=== PATIENT | female | born 1950 | race African-American/Black ===

== ENCOUNTER 2020-07-27 12:00 | Observation (INO) | payer OTHER ==
[2020-07-27 12:18] VITALS: BMI 30.9
[2020-07-27] MEDS ORDERED: LACTATED RINGERS SOLUTION 1000 ML INFUS.BAG IV ONE (13:05)
[2020-07-27 13:25] LABS: BASO % 0.7 % (0-2.0); HEMATOCRIT 41.3 % (32.4-45.2); HEMOGLOBIN 13.5 GM/dL (10.7-15.3); LYMPH % 12.8 % (8-40); MCH 28.5 pg (25.7-33.7); MCHC 32.6 g/dl (32.0-36.0); MEAN CELL VOLUME 87.4 fl (80-96); MEAN PLT VOLUME 9.3 fl (7.5-11.1); MONO % 4.2 % (3.8-10.2); NEUT % 82.3 % (42.8-82.8); PLATELET COUNT 344 K/MM3 (134-434); RBC 4.73 M/mm3 (3.60-5.2); RDW 14.8 % (11.6-15.6)
[2020-07-27 13:32] LABS: INR 1.05 (0.83-1.09); PROTHROMBIN TIME (PATIENT) 12.9 SEC (9.7-13.0)
[2020-07-27 13:34] LABS: ACTIVATED PTT 31.5 SECONDS (25.2-36.5)
[2020-07-27 13:45] LABS: ALBUMIN 4.2 g/dl (3.4-5.0); BLOOD UREA NITROGEN 16.4 mg/dL (7-18); CALCIUM 9.9 mg/dL (8.5-10.1)
[2020-07-27 13:48] LABS: CREATININE 1.3 mg/dL (0.55-1.3)
[2020-07-27 13:50] LABS: BILIRUBIN,TOTAL 0.3 mg/dL (0.2-1); TOT PROT 8.3 g/dl (6.4-8.2)
[2020-07-27] MEDS ORDERED: METOPROLOL TARTRATE 5 MG/5 ML VIAL IVPUSH ONE (14:05)
[2020-07-27] MEDS ORDERED: METOPROLOL TARTRATE 25 MG TABLET (FP) PO ONE (14:17)
[2020-07-27] MEDS ORDERED: METOPROLOL TARTRATE 25 MG TABLET (FP) ONE (14:44)
[2020-07-27] MEDS ORDERED: FAMOTIDINE 20 MG/50 ML IVPB 20 MG/50 ML MG IVPB ONE ×2 (17:22→17:46)
[2020-07-27] MEDS ORDERED: MAG HYDROX/AL HYDROX/SIMETH 30 ML UNIT-DOSE CUP PO ONE (20:45)
[2020-07-27] MEDS ORDERED: MAG HYDROX/AL HYDROX/SIMETH 30 ML UNIT-DOSE CUP ONE (20:47)
[2020-07-28] MEDS: INSULIN SLIDING SCALE (NOVOLOG) 1 VIAL SQ SCH ×5 (00:03→21:19)
[2020-07-28] MEDS ORDERED: ATORVASTATIN CA 20 MG TABLET (FP) ONE (00:05)
[2020-07-28] MEDS ORDERED: METOPROLOL TARTRATE 25 MG TABLET (FP) ONE ×2 (00:06→09:28)
[2020-07-28] MEDS ORDERED: APIXABAN 5 MG TABLET ONE (00:06)
[2020-07-28] MEDS: APIXABAN 5 MG TABLET PO SCH ×3 (00:11→21:18)
[2020-07-28] MEDS: ATORVASTATIN CA 10 MG TABLET (FP) PO SCH ×2 (00:11→21:18)
[2020-07-28] MEDS: METOPROLOL TARTRATE 25 MG TABLET (FP) PO SCH ×4 (00:11→21:19)
[2020-07-28 06:24] LABS: BASO % 1.1 % (0-2.0); EOS % 0.2 % (0-4.5); HEMATOCRIT 40.5 % (32.4-45.2); HEMOGLOBIN 13.2 GM/dL (10.7-15.3); LYMPH % 28.1 % (8-40); MCH 28.5 pg (25.7-33.7); MCHC 32.7 g/dl (32.0-36.0); MEAN CELL VOLUME 87.2 fl (80-96); MONO % 7.9 % (3.8-10.2); NEUT % 62.7 % (42.8-82.8); PLATELET COUNT 336 K/MM3 (134-434); RBC 4.64 M/mm3 (3.60-5.2); RDW 15.4 % (11.6-15.6); WHITE BLOOD COUNT 8.3 K/mm3 (4.0-10.0)
[2020-07-28 06:49] LABS: CHOLESTEROL 229 mg/dL (50-200); TRIGLYCERIDES 195 mg/dL (0-150)
[2020-07-28 06:50] LABS: HDL CHOLESTEROL 50 mg/dL (40-60); LDL CHOLESTEROL (ONLY SJRH) 135 mg/dL (5-100)
[2020-07-28 07:22] LABS: CALCIUM 9.6 mg/dL (8.5-10.1)
[2020-07-28 07:23] LABS: ALBUMIN 3.9 g/dl (3.4-5.0); BLOOD UREA NITROGEN 16.4 mg/dL (7-18); MAGNESIUM 2.1 mg/dL (1.8-2.4)
[2020-07-28 07:27] LABS: BILIRUBIN,TOTAL 0.4 mg/dL (0.2-1)
[2020-07-28 07:28] LABS: TOT PROT 7.7 g/dl (6.4-8.2)
[2020-07-28 07:39] LABS: CREATININE 1.1 mg/dL (0.55-1.3)
[2020-07-28] MEDS ORDERED: ASPIRIN 81 MG CHEWABLE TABLETS ONE (09:28)
[2020-07-28] MEDS ORDERED: APIXABAN 2.5 MG TABLET ONE (09:28)
[2020-07-28] MEDS ORDERED: CITALOPRAM HYDROBROMIDE 10 MG TABLET ONE (09:29)
[2020-07-28] MEDS: CITALOPRAM HYDROBROMIDE 10 MG TABLET PO SCH (09:30)
[2020-07-28] MEDS ORDERED: ASPIRIN 81 MG CHEWABLE TABLETS PO SCH (10:00)
[2020-07-28] MEDS: amLODIPine BESYLATE 10 MG TABLET (FP) PO SCH (14:59)
[2020-07-28] MEDS ORDERED: MAG HYDROX/AL HYDROX/SIMETH 30 ML UNIT-DOSE CUP PO PRN (15:26)
[2020-07-28] MEDS ORDERED: INSULIN (NOVOLOG) ASPART 100 UNITS/ML 10ML VIAL ONE (17:21)
[2020-07-28] MEDS ORDERED: PT OWN MED DRAWER 7, Y5N ONE (20:53)
[2020-07-28] MEDS: GABAPENTIN 300 MG CAPSULE PO SCH (21:19)
[2020-07-28] MEDS ORDERED: LATANOPROST 0.005% OPHTH SOLN 2.5ML BOTTLE OU SCH (22:00)
[2020-07-28] MEDS: TIZANIDINE HCL 4 MG TABLET PO SCH (22:52)
[2020-07-29 05:41] VITALS: BP 133/70; PULSE 75; TEMP 98.5
[2020-07-29] MEDS: METOPROLOL TARTRATE 25 MG TABLET (FP) PO SCH (06:24)
[2020-07-29] MEDS: INSULIN SLIDING SCALE (NOVOLOG) 1 VIAL SQ SCH ×3 (06:24→16:39)
[2020-07-29 07:08] LABS: HEMATOCRIT 37.4 % (32.4-45.2); HEMOGLOBIN 12.3 GM/dL (10.7-15.3); MCH 28.7 pg (25.7-33.7); MCHC 32.7 g/dl (32.0-36.0); MEAN CELL VOLUME 87.8 fl (80-96); MEAN PLT VOLUME 9.5 fl (7.5-11.1); PLATELET COUNT 284 K/MM3 (134-434); RBC 4.26 M/mm3 (3.60-5.2); RDW 14.6 % (11.6-15.6); WHITE BLOOD COUNT 5.7 K/mm3 (4.0-10.0)
[2020-07-29 07:33] LABS: CALCIUM 9.5 mg/dL (8.5-10.1)
[2020-07-29 07:34] LABS: BLOOD UREA NITROGEN 24.2 mg/dL (7-18)
[2020-07-29 07:37] LABS: CREATININE 1.4 mg/dL (0.55-1.3)
[2020-07-29] MEDS: amLODIPine BESYLATE 10 MG TABLET (FP) PO SCH (09:13)
[2020-07-29] MEDS: GABAPENTIN 300 MG CAPSULE PO SCH (09:13)
[2020-07-29] MEDS: APIXABAN 5 MG TABLET PO SCH (09:14)
[2020-07-29] MEDS: TIZANIDINE HCL 4 MG TABLET PO SCH (09:21)
[2020-07-29] MEDS ORDERED: LISINOPRIL 10 MG TABLET PO SCH (10:00)
[2020-07-29] MEDS ORDERED: FUROSEMIDE 40 MG TABLET (FP) PO SCH (10:00)
[2020-07-29] MEDS ORDERED: PT OWN MED DRAWER 7, Y5N ONE (10:55)
[2020-07-29] MEDS: CITALOPRAM HYDROBROMIDE 10 MG TABLET PO SCH (10:56)
== END 2020-07-29 19:01 | disposition home or self-care (01) ==
LOC: JER 12:00 → UNDOADMOB 16:59 → INTOOBSV 16:59 → JERBED 16:59 → J4W 07-28 15:34 → JERBED 07-29 10:09
PROVIDERS: ATTEND Internal Medicine
PROC: 3E013VG Introduction of Insulin into Subcutaneous Tissue, Percutaneous Approach (ICD-10-PCS; principal; 2020-07-29)
DX: I48.20 Chronic atrial fibrillation, unspecified (principal); E11.9 Type 2 diabetes mellitus without complications; Z79.4 Long term (current) use of insulin; K21.9 Gastro-esophageal reflux disease without esophagitis; G47.33 Obstructive sleep apnea (adult) (pediatric); I25.10 Atherosclerotic heart disease of native coronary artery without angina pectoris; I13.10 Hypertensive heart and chronic kidney disease without heart failure, with stage 1 through stage 4 chronic kidney disease, or unspecified chronic kidney disease; N18.30 Chronic kidney disease, stage 3 unspecified; I25.2 Old myocardial infarction; Z95.5 Presence of coronary angioplasty implant and graft; M54.5 Low back pain; G89.29 Other chronic pain; E66.9 Obesity, unspecified; Z68.30 Body mass index [BMI] 30.0-30.9, adult; Z89.511 Acquired absence of right leg below knee
CPT/HCPCS: 36415; 71046-TC-FY; 74177-TC; 80048; 80053; 80061; 82962; 83036; 83690; 83721; 83735; 84439; 84443; 84484; 85025; 85027; 85610; 85730; 93005; 93010; 93306-TC; 96372; 99285-25; C9803; G0378; Q9967; U0003; U0005

== ENCOUNTER 2021-01-11 09:35 | Inpatient (IN) | payer OTHER ==
[2021-01-11] MEDS ORDERED: VANCOMYCIN 1 GM in D5W (PRE-DOCKED) 1,000 MG/250 ML IVPB ONE (10:40)
[2021-01-11] MEDS ORDERED: PIPERACILLIN/TAZOB 3.375 GM 3.375 GM in DEXTROSE 5%-WATER - 50 ML IVPB ONE (10:40)
[2021-01-11] MEDS ORDERED: VANCOMYCIN 1 GRAM (PRE-DOCKED) 1,000 MG/250 ML BAG IVPB ONE (11:09)
[2021-01-11] MEDS ORDERED: PIPERACILLIN/TAZOB 3.375 GM 3.375 GM/50 ML BAG IVPB ONE ×2 (11:10→19:32)
[2021-01-11 11:15] LABS: EOS % 0.7 % (0-4.5); HEMATOCRIT 33.4 % (32.4-45.2); HEMOGLOBIN 10.6 GM/dL (10.7-15.3); LYMPH % 17.6 % (8-40); MCH 25.1 pg (25.7-33.7); MCHC 31.8 g/dl (32.0-36.0); MEAN CELL VOLUME 78.8 fl (80-96); MEAN PLT VOLUME 8.7 fl (7.5-11.1); MONO % 7.6 % (3.8-10.2); NEUT % 72.1 % (42.8-82.8); PLATELET COUNT 269 10^3/uL (134-434); RBC 4.24 M/mm3 (3.60-5.2); RDW 26.7 % (11.6-15.6); WHITE BLOOD COUNT 6.1 K/mm3 (4.0-10.0)
[2021-01-11 11:43] LABS: ALBUMIN 3.7 g/dl (3.4-5.0); BLOOD UREA NITROGEN 13.6 mg/dL (7-18); CALCIUM 9.3 mg/dL (8.5-10.1)
[2021-01-11 11:47] LABS: CREATININE 1.2 mg/dL (0.55-1.3)
[2021-01-11 11:48] LABS: BILIRUBIN,TOTAL 0.3 mg/dL (0.2-1); TOT PROT 7.6 g/dl (6.4-8.2)
[2021-01-11 12:20] LABS: ANISOCYTOSIS 3+; MACROCYTOSIS 2+
[2021-01-11] MEDS ORDERED: ACETAMINOPHEN 325 MG TABLET (FP) PO PRN (14:16)
[2021-01-11] MEDS ORDERED: PIPERACILLIN/TAZOB 3.375 GM 3.375 GM in DEXTROSE 5%-WATER - 50 ML IVPB SCH (14:30)
[2021-01-11] MEDS: INSULIN SLIDING SCALE (NOVOLOG) 1 VIAL SQ SCH ×2 (19:40→22:13)
[2021-01-11] MEDS: PIPERACILLIN/TAZOB 3.375 GM 3.375 GM in DEXTROSE 5%-WATER - 50 ML IVPB SCH ×3 (20:38→21:43)
[2021-01-11] MEDS: INSULIN (LEVEMIR) 100 UNITS/ML UNITS SQ SCH (22:12)
[2021-01-11] MEDS: APIXABAN 5 MG TABLET PO SCH (22:13)
[2021-01-11] MEDS: GABAPENTIN 300 MG CAPSULE PO SCH (22:14)
[2021-01-11] MEDS: ATORVASTATIN CA 10 MG TABLET (FP) PO SCH (22:14)
[2021-01-11] MEDS: VANCOMYCIN 1 GRAM (PRE-DOCKED) 1,000 MG/250 ML BAG IVPB SCH (22:28)
[2021-01-12 00:47] LABS: N-TERMINAL BNP 863.4 pg/ml (5-125)
[2021-01-12] MEDS ORDERED: DEXTROSE 5%-WATER - 50 ML IVPB ONE ×3 (01:09→17:34)
[2021-01-12] MEDS ORDERED: PIPERACILLIN/TAZOBACTAM 3.375 GM VIAL IVPB ONE ×3 (01:09→17:33)
[2021-01-12] MEDS: PIPERACILLIN/TAZOB 3.375 GM 3.375 GM in DEXTROSE 5%-WATER - 50 ML IVPB SCH ×3 (01:24→17:37)
[2021-01-12] MEDS: INSULIN SLIDING SCALE (NOVOLOG) 1 VIAL SQ SCH ×4 (06:13→21:29)
[2021-01-12] MEDS: INSULIN (LEVEMIR) 100 UNITS/ML UNITS SQ SCH ×2 (06:15→21:28)
[2021-01-12 08:51] LABS: BASO % 1.8 % (0-2.0); EOS % 3.6 % (0-4.5); HEMATOCRIT 35.2 % (32.4-45.2); HEMOGLOBIN 11.3 GM/dL (10.7-15.3); LYMPH % 19.5 % (8-40); MCH 25.1 pg (25.7-33.7); MCHC 32.2 g/dl (32.0-36.0); MEAN CELL VOLUME 77.9 fl (80-96); MEAN PLT VOLUME 8.7 fl (7.5-11.1); MONO % 7.5 % (3.8-10.2); NEUT % 67.6 % (42.8-82.8); PLATELET COUNT 271 10^3/uL (134-434); RBC 4.52 M/mm3 (3.60-5.2); WHITE BLOOD COUNT 5.4 K/mm3 (4.0-10.0)
[2021-01-12 09:30] LABS: ALBUMIN 3.8 g/dl (3.4-5.0); CALCIUM 9.4 mg/dL (8.5-10.1)
[2021-01-12 09:33] LABS: CREATININE 1.1 mg/dL (0.55-1.3); PHOSPHOROUS 3.4 mg/dL (2.5-4.9)
[2021-01-12 09:35] LABS: BILIRUBIN,TOTAL 0.4 mg/dL (0.2-1); TOT PROT 7.8 g/dl (6.4-8.2)
[2021-01-12] MEDS: GABAPENTIN 300 MG CAPSULE PO SCH ×2 (09:53→21:24)
[2021-01-12] MEDS: FUROSEMIDE 40 MG TABLET (FP) PO SCH (09:53)
[2021-01-12] MEDS: APIXABAN 5 MG TABLET PO SCH ×3 (09:53→22:50)
[2021-01-12] MEDS: amLODIPine BESYLATE 10 MG TABLET (FP) PO SCH (09:53)
[2021-01-12] MEDS ORDERED: VANCOMYCIN 1 GM in D5W (PRE-DOCKED) 1,000 MG/250 ML IVPB SCH (11:00)
[2021-01-12] MEDS: VANCOMYCIN 1 GRAM (PRE-DOCKED) 1,000 MG/250 ML BAG IVPB SCH ×2 (11:07→23:15)
[2021-01-12] MEDS: NYSTATIN POWDER 100,000 UNITS/GM - 15 GM TOPICAL POWDER TP SCH (17:03)
[2021-01-12] MEDS: ATORVASTATIN CA 10 MG TABLET (FP) PO SCH (21:25)
[2021-01-13] MEDS ORDERED: PIPERACILLIN/TAZOBACTAM 3.375 GM VIAL IVPB ONE ×3 (02:57→18:06)
[2021-01-13] MEDS ORDERED: DEXTROSE 5%-WATER - 50 ML IVPB ONE ×3 (02:57→18:06)
[2021-01-13] MEDS: PIPERACILLIN/TAZOB 3.375 GM 3.375 GM in DEXTROSE 5%-WATER - 50 ML IVPB SCH ×3 (03:14→18:19)
[2021-01-13] MEDS: INSULIN SLIDING SCALE (NOVOLOG) 1 VIAL SQ SCH ×4 (06:24→22:15)
[2021-01-13] MEDS: INSULIN (LEVEMIR) 100 UNITS/ML UNITS SQ SCH ×2 (06:28→22:10)
[2021-01-13 08:54] LABS: HEMOGLOBIN 10.9 GM/dL (10.7-15.3); MCHC 32.1 g/dl (32.0-36.0); MEAN CELL VOLUME 77.9 fl (80-96); MEAN PLT VOLUME 8.8 fl (7.5-11.1); PLATELET COUNT 249 10^3/uL (134-434); RBC 4.37 M/mm3 (3.60-5.2); RDW 26.4 % (11.6-15.6); WHITE BLOOD COUNT 5.1 K/mm3 (4.0-10.0)
[2021-01-13 09:48] LABS: BLOOD UREA NITROGEN 13.7 mg/dL (7-18); MAGNESIUM 2.1 mg/dL (1.8-2.4)
[2021-01-13 09:51] LABS: CREATININE 1.2 mg/dL (0.55-1.3); PHOSPHOROUS 3.7 mg/dL (2.5-4.9)
[2021-01-13] MEDS: GABAPENTIN 300 MG CAPSULE PO SCH ×2 (10:54→22:07)
[2021-01-13] MEDS: amLODIPine BESYLATE 10 MG TABLET (FP) PO SCH (10:54)
[2021-01-13] MEDS: FUROSEMIDE 40 MG TABLET (FP) PO SCH (10:54)
[2021-01-13] MEDS: NYSTATIN POWDER 100,000 UNITS/GM - 15 GM TOPICAL POWDER TP SCH (10:54)
[2021-01-13] MEDS: VANCOMYCIN 1 GRAM (PRE-DOCKED) 1,000 MG/250 ML BAG IVPB SCH ×2 (11:48→22:50)
[2021-01-13] MEDS ORDERED: ONDANSETRON 4 MG/2 ML VIAL IVPUSH PRN ×2 (15:22→17:18)
[2021-01-13] MEDS ORDERED: PROMETHAZINE HCL 25 MG/1 ML VIAL IVPUSH PRN (15:22)
[2021-01-13] MEDS ORDERED: LACTATED RINGERS SOLUTION 1,000 ML IV SCH ×2 (15:30→17:18)
[2021-01-13] MEDS ORDERED: LIDOCAINE HCL 1%, 10 MG/ML (20ML VIAL) ONE (15:46)
[2021-01-13] MEDS ORDERED: MIDAZOLAM HCL 2 MG/2 ML SINGLE DOSE VIAL ONE (15:55)
[2021-01-13] MEDS ORDERED: PROPOFOL 20 ML ONE (15:55)
[2021-01-13] MEDS ORDERED: HEPARIN NA (PORCINE) 5,000 UNITS/ML 1ML VIAL SQ ONE (16:10)
[2021-01-13] MEDS ORDERED: HEPARIN NA (PORCINE) 5,000 UNITS/ML 1ML VIAL ONE (16:26)
[2021-01-13] MEDS ORDERED: INSULIN (NOVOLOG) ASPART 100 UNITS/ML 10ML VIAL ONE (17:33)
[2021-01-13] MEDS: APIXABAN 5 MG TABLET PO SCH (22:07)
[2021-01-13] MEDS: ATORVASTATIN CA 10 MG TABLET (FP) PO SCH (22:08)
[2021-01-13] MEDS: ACETAMINOPHEN 325 MG TABLET (FP) PO PRN (22:08)
[2021-01-14] MEDS ORDERED: PIPERACILLIN/TAZOBACTAM 3.375 GM VIAL IVPB ONE ×3 (01:29→16:53)
[2021-01-14] MEDS: PIPERACILLIN/TAZOB 3.375 GM 3.375 GM in DEXTROSE 5%-WATER - 50 ML IVPB SCH ×3 (02:10→17:07)
[2021-01-14] MEDS: INSULIN (LEVEMIR) 100 UNITS/ML UNITS SQ SCH ×2 (06:59→21:15)
[2021-01-14] MEDS: INSULIN SLIDING SCALE (NOVOLOG) 1 VIAL SQ SCH ×4 (07:00→21:16)
[2021-01-14] MEDS ORDERED: INSULIN (NOVOLOG) ASPART 100 UNITS/ML 10ML VIAL ONE (08:00)
[2021-01-14 09:18] LABS: HEMATOCRIT 31.5 % (32.4-45.2); HEMOGLOBIN 10.6 GM/dL (10.7-15.3); MCH 25.8 pg (25.7-33.7); MCHC 33.5 g/dl (32.0-36.0); MEAN CELL VOLUME 77.3 fl (80-96); MEAN PLT VOLUME 8.7 fl (7.5-11.1); PLATELET COUNT 208 10^3/uL (134-434); RBC 4.08 M/mm3 (3.60-5.2); RDW 26.4 % (11.6-15.6)
[2021-01-14 09:30] LABS: CALCIUM 8.6 mg/dL (8.5-10.1)
[2021-01-14 09:31] LABS: BLOOD UREA NITROGEN 12.3 mg/dL (7-18)
[2021-01-14 09:34] LABS: CREATININE 1.2 mg/dL (0.55-1.3); PHOSPHOROUS 3.3 mg/dL (2.5-4.9)
[2021-01-14] MEDS ORDERED: DEXTROSE 5%-WATER - 50 ML IVPB ONE ×2 (10:12→16:53)
[2021-01-14] MEDS: FUROSEMIDE 40 MG TABLET (FP) PO SCH (10:16)
[2021-01-14] MEDS: amLODIPine BESYLATE 10 MG TABLET (FP) PO SCH (10:16)
[2021-01-14] MEDS: APIXABAN 5 MG TABLET PO SCH ×2 (10:17→21:15)
[2021-01-14] MEDS: GABAPENTIN 300 MG CAPSULE PO SCH ×2 (10:17→21:15)
[2021-01-14] MEDS: NYSTATIN POWDER 100,000 UNITS/GM - 15 GM TOPICAL POWDER TP SCH (10:18)
[2021-01-14] MEDS: ACETAMINOPHEN 325 MG TABLET (FP) PO PRN (10:27)
[2021-01-14] MEDS: VANCOMYCIN 1 GRAM (PRE-DOCKED) 1,000 MG/250 ML BAG IVPB SCH ×2 (10:52→22:17)
[2021-01-14] MEDS: COLLAGENASE CLOSTRIDIUM HIST. 30 GRAMS TUBE TP SCH (15:18)
[2021-01-14] MEDS: ATORVASTATIN CA 10 MG TABLET (FP) PO SCH (21:15)
[2021-01-15] MEDS ORDERED: DEXTROSE 5%-WATER - 50 ML IVPB ONE ×3 (00:22→16:53)
[2021-01-15] MEDS ORDERED: PIPERACILLIN/TAZOBACTAM 3.375 GM VIAL IVPB ONE ×3 (00:22→16:53)
[2021-01-15] MEDS: PIPERACILLIN/TAZOB 3.375 GM 3.375 GM in DEXTROSE 5%-WATER - 50 ML IVPB SCH ×3 (01:26→17:39)
[2021-01-15] MEDS: INSULIN SLIDING SCALE (NOVOLOG) 1 VIAL SQ SCH ×4 (06:04→22:51)
[2021-01-15] MEDS: INSULIN (LEVEMIR) 100 UNITS/ML UNITS SQ SCH ×2 (06:05→22:52)
[2021-01-15] MEDS ORDERED: POTASSIUM CHLORIDE TABS 20 MEQ TABLET.ER (FP) PO ONE (09:30)
[2021-01-15] MEDS: GABAPENTIN 300 MG CAPSULE PO SCH ×2 (09:42→22:50)
[2021-01-15] MEDS: FUROSEMIDE 40 MG TABLET (FP) PO SCH (09:43)
[2021-01-15] MEDS: amLODIPine BESYLATE 10 MG TABLET (FP) PO SCH (09:43)
[2021-01-15] MEDS: APIXABAN 5 MG TABLET PO SCH ×2 (09:49→22:50)
[2021-01-15] MEDS: COLLAGENASE CLOSTRIDIUM HIST. 30 GRAMS TUBE TP SCH (09:49)
[2021-01-15] MEDS: NYSTATIN POWDER 100,000 UNITS/GM - 15 GM TOPICAL POWDER TP SCH (09:50)
[2021-01-15 10:23] LABS: HEMOGLOBIN 10.9 GM/dL (10.7-15.3); MCH 25.2 pg (25.7-33.7); MCHC 32.2 g/dl (32.0-36.0); MEAN CELL VOLUME 78.5 fl (80-96); MEAN PLT VOLUME 9.2 fl (7.5-11.1); PLATELET COUNT 237 10^3/uL (134-434); RBC 4.33 M/mm3 (3.60-5.2); RDW 26.2 % (11.6-15.6); WHITE BLOOD COUNT 5.9 K/mm3 (4.0-10.0)
[2021-01-15 10:47] LABS: BLOOD UREA NITROGEN 14.5 mg/dL (7-18); CALCIUM 9.3 mg/dL (8.5-10.1)
[2021-01-15 10:51] LABS: CREATININE 1.2 mg/dL (0.55-1.3); PHOSPHOROUS 3.2 mg/dL (2.5-4.9)
[2021-01-15] MEDS: VANCOMYCIN 1 GRAM (PRE-DOCKED) 1,000 MG/250 ML BAG IVPB SCH ×2 (10:53→23:22)
[2021-01-15] MEDS: ACETAMINOPHEN 325 MG TABLET (FP) PO PRN (18:42)
[2021-01-15] MEDS ORDERED: INSULIN (NOVOLOG) ASPART 100 UNITS/ML 10ML VIAL ONE (21:41)
[2021-01-15] MEDS: ATORVASTATIN CA 10 MG TABLET (FP) PO SCH (22:50)
[2021-01-16] MEDS ORDERED: DEXTROSE 5%-WATER - 50 ML IVPB ONE ×3 (02:37→17:30)
[2021-01-16] MEDS ORDERED: PIPERACILLIN/TAZOBACTAM 3.375 GM VIAL IVPB ONE ×3 (02:37→17:30)
[2021-01-16] MEDS: PIPERACILLIN/TAZOB 3.375 GM 3.375 GM in DEXTROSE 5%-WATER - 50 ML IVPB SCH ×3 (02:54→18:03)
[2021-01-16] MEDS: INSULIN (LEVEMIR) 100 UNITS/ML UNITS SQ SCH ×2 (06:19→21:37)
[2021-01-16] MEDS: INSULIN SLIDING SCALE (NOVOLOG) 1 VIAL SQ SCH ×4 (06:20→21:38)
[2021-01-16] MEDS: amLODIPine BESYLATE 10 MG TABLET (FP) PO SCH (10:47)
[2021-01-16] MEDS: APIXABAN 5 MG TABLET PO SCH (10:47)
[2021-01-16] MEDS: NYSTATIN POWDER 100,000 UNITS/GM - 15 GM TOPICAL POWDER TP SCH (10:47)
[2021-01-16] MEDS: GABAPENTIN 300 MG CAPSULE PO SCH ×2 (10:47→21:36)
[2021-01-16] MEDS: FUROSEMIDE 40 MG TABLET (FP) PO SCH (10:47)
[2021-01-16] MEDS: COLLAGENASE CLOSTRIDIUM HIST. 30 GRAMS TUBE TP SCH (10:47)
[2021-01-16] MEDS: VANCOMYCIN 1 GRAM (PRE-DOCKED) 1,000 MG/250 ML BAG IVPB SCH ×2 (11:56→23:50)
[2021-01-16 15:56] VITALS: BMI 31.2
[2021-01-16] MEDS: ACETAMINOPHEN 325 MG TABLET (FP) PO PRN (16:41)
[2021-01-16] MEDS ORDERED: INSULIN (NOVOLOG) ASPART 100 UNITS/ML 10ML VIAL ONE ×2 (18:40→21:30)
[2021-01-16] MEDS: ATORVASTATIN CA 10 MG TABLET (FP) PO SCH (21:36)
[2021-01-17] MEDS ORDERED: PIPERACILLIN/TAZOBACTAM 3.375 GM VIAL IVPB ONE ×2 (01:20→09:37)
[2021-01-17] MEDS ORDERED: DEXTROSE 5%-WATER - 50 ML IVPB ONE ×2 (01:21→09:37)
[2021-01-17] MEDS: PIPERACILLIN/TAZOB 3.375 GM 3.375 GM in DEXTROSE 5%-WATER - 50 ML IVPB SCH ×2 (01:52→11:21)
[2021-01-17] MEDS: INSULIN (LEVEMIR) 100 UNITS/ML UNITS SQ SCH (06:51)
[2021-01-17] MEDS: INSULIN SLIDING SCALE (NOVOLOG) 1 VIAL SQ SCH ×2 (06:52→11:44)
[2021-01-17] MEDS ORDERED: INSULIN (NOVOLOG) ASPART 100 UNITS/ML 10ML VIAL ONE (07:35)
[2021-01-17] MEDS ORDERED: INSULIN (LEVEMIR) 100 UNITS/ML UNITS SQ ONE (07:36)
[2021-01-17 09:25] LABS: BASO % 0.9 % (0-2.0); HEMATOCRIT 34.7 % (32.4-45.2); HEMOGLOBIN 11.1 GM/dL (10.7-15.3); MCH 25.2 pg (25.7-33.7); MCHC 32.1 g/dl (32.0-36.0); MEAN CELL VOLUME 78.4 fl (80-96); NEUT % 69.1 % (42.8-82.8); PLATELET COUNT 257 10^3/uL (134-434); RBC 4.42 M/mm3 (3.60-5.2); RDW 26.2 % (11.6-15.6); WHITE BLOOD COUNT 5.7 K/mm3 (4.0-10.0)
[2021-01-17 09:32] LABS: CALCIUM 9.3 mg/dL (8.5-10.1)
[2021-01-17 09:33] LABS: BLOOD UREA NITROGEN 11.7 mg/dL (7-18)
[2021-01-17 09:36] LABS: CREATININE 1.1 mg/dL (0.55-1.3)
[2021-01-17] MEDS: GABAPENTIN 300 MG CAPSULE PO SCH (09:39)
[2021-01-17] MEDS: NYSTATIN POWDER 100,000 UNITS/GM - 15 GM TOPICAL POWDER TP SCH (09:39)
[2021-01-17] MEDS: FUROSEMIDE 40 MG TABLET (FP) PO SCH (09:39)
[2021-01-17] MEDS: amLODIPine BESYLATE 10 MG TABLET (FP) PO SCH (09:39)
[2021-01-17] MEDS: COLLAGENASE CLOSTRIDIUM HIST. 30 GRAMS TUBE TP SCH (09:40)
[2021-01-17 11:24] LABS: ANISOCYTOSIS 2+; MACROCYTOSIS 0; OVALOCYTE 1+; PLATELET ESTIMATE NORMAL
[2021-01-17] MEDS: APIXABAN 5 MG TABLET PO SCH (11:43)
[2021-01-17] MEDS: VANCOMYCIN 1 GRAM (PRE-DOCKED) 1,000 MG/250 ML BAG IVPB SCH (12:05)
[2021-01-17] MEDS ORDERED: CEFEPIME 1 GM in DEXTROSE 5%-WATER 1 GM/100 ML BAG IVPB ONE (12:56)
[2021-01-17] MEDS ORDERED: DAPTOMYCIN 320 MG in SODIUM CHLORIDE 50 ML IVPB SCH (13:00)
[2021-01-17] MEDS ORDERED: CEFEPIME HCL 1 GM VIAL (RESTRICTED TO ID) ONE (13:28)
[2021-01-17] MEDS ORDERED: DEXTROSE 5%-WATER 100 ML IVPB ONE (13:28)
[2021-01-17 16:42] VITALS: BP 142/60; PULSE 74; TEMP 98.2
== END 2021-01-17 16:42 | disposition home or self-care (01) | DRG 638 ==
LOC: JER 09:35 → JERBED 10:40 → J8W 21:24
PROVIDERS: ADMIT Internal Medicine; ATTEND Internal Medicine
PROC: B41DYZZ Fluoroscopy of Aorta and Bilateral Lower Extremity Arteries using Other Contrast (ICD-10-PCS; 2021-01-13)
PROC: B41GYZZ Fluoroscopy of Left Lower Extremity Arteries using Other Contrast (ICD-10-PCS; principal; 2021-01-13 12:30)
PROC: 02HV33Z Insertion of Infusion Device into Superior Vena Cava, Percutaneous Approach (ICD-10-PCS; 2021-01-17)
PROC: B548ZZA Ultrasonography of Superior Vena Cava, Guidance (ICD-10-PCS; 2021-01-17)
DX: E11.69 Type 2 diabetes mellitus with other specified complication (principal); M86.8X7 Other osteomyelitis, ankle and foot; E78.5 Hyperlipidemia, unspecified; Z89.511 Acquired absence of right leg below knee; E11.51 Type 2 diabetes mellitus with diabetic peripheral angiopathy without gangrene; I48.0 Paroxysmal atrial fibrillation; E11.22 Type 2 diabetes mellitus with diabetic chronic kidney disease; I12.9 Hypertensive chronic kidney disease with stage 1 through stage 4 chronic kidney disease, or unspecified chronic kidney disease; N18.9 Chronic kidney disease, unspecified; I25.10 Atherosclerotic heart disease of native coronary artery without angina pectoris; D50.9 Iron deficiency anemia, unspecified; E66.9 Obesity, unspecified; Z79.4 Long term (current) use of insulin; Z68.31 Body mass index [BMI] 31.0-31.9, adult
CPT/HCPCS: 36415; 36569; 71045-TC-FY; 76000-TC-FY; 77001-TC-FY; 80048; 80053; 80061; 82962; 83036; 83735; 83880; 84100; 84484; 85025; 85027; 87040; 93005; 93010; 93880-TC; 94760; 97116-GP; 97161-GP; 99285-25; C1751; C9803; G0463-25; G0480; J0878; J1644; U0003; U0005

== ENCOUNTER 2021-05-27 11:48 | Inpatient (IN) | payer OTHER ==
[2021-05-27 13:46] LABS: BASO % 1.1 % (0-2.0); EOS % 0.6 % (0-4.5); HEMATOCRIT 35.5 % (32.4-45.2); HEMOGLOBIN 11.4 GM/dL (10.7-15.3); LYMPH % 23.3 % (8-40); MCH 28.7 pg (25.7-33.7); MCHC 32.2 g/dl (32.0-36.0); MEAN CELL VOLUME 89.2 fl (80-96); MONO % 12.2 % (3.8-10.2); NEUT % 62.8 % (42.8-82.8); PLATELET COUNT 226 10^3/uL (134-434); RBC 3.98 M/mm3 (3.60-5.2); RDW 16.3 % (11.6-15.6); WHITE BLOOD COUNT 5.1 K/mm3 (4.0-10.0)
[2021-05-27 14:11] LABS: CHLORIDE 104 mmol/L (98-107); SODIUM 141 mmol/L (136-145)
[2021-05-27 14:12] LABS: EPI CELLS 17 /uL (0-25.1); HYALINE CASTS 4 /uL (0-3.1); URINE APPEARANCE CLOUDY; URINE BACTERIA 20 /uL (0-1359); URINE BILIRUBIN NEGATIVE (NEGATIVE); URINE COLOR DK YELLOW; URINE GLUCOSE (UA) NEGATIVE (NEGATIVE); URINE KETONE TRACE (NEGATIVE); URINE LEUK ESTERASE TRACE (NEGATIVE); URINE NITRITE NEGATIVE (NEGATIVE); URINE PROTEIN 1+ (NEGATIVE); URINE RBC 43 /uL (0-23.9); URINE UROBILINOGEN 0.2 mg/dL (0.2-1.0); URINE WBC 61 /uL (0-25.8)
[2021-05-27 14:12] LABS: CALCIUM 8.8 mg/dL (8.5-10.1)
[2021-05-27 14:13] LABS: ALBUMIN 3.6 g/dl (3.4-5.0); ANION GAP 6 MMOL/L (8-16); CO2 30 mmol/L (21-32); GLUCOSE,RANDOM 113 mg/dL (74-106); MAGNESIUM 2.8 mg/dL (1.8-2.4)
[2021-05-27 14:16] LABS: CREATININE 4.4 mg/dL (0.55-1.3); PHOSPHOROUS 4.3 mg/dL (2.5-4.9); SGOT/AST 16 U/L (15-37); SGPT/ALT 26 U/L (13-61)
[2021-05-27 14:18] LABS: BILIRUBIN,TOTAL 0.2 mg/dL (0.2-1); TOT PROT 7.1 g/dl (6.4-8.2)
[2021-05-27 14:19] LABS: ALK PHOS 81 U/L (45-117)
[2021-05-27 14:26] LABS: URINE CRYSTALS NEGATIVE /hpf
[2021-05-27] MEDS ORDERED: SODIUM CHLORIDE 500 ML IV STA (19:23)
[2021-05-27] MEDS: INSULIN (LEVEMIR) 100 UNITS/ML UNITS SQ SCH (23:26)
[2021-05-27] MEDS: GABAPENTIN 300 MG CAPSULE PO SCH (23:27)
[2021-05-27] MEDS: ATORVASTATIN CA 10 MG TABLET (FP) PO SCH (23:27)
[2021-05-27] MEDS: APIXABAN 5 MG TABLET PO SCH (23:27)
[2021-05-27] MEDS: SODIUM CHLORIDE 1,000 ML IV SCH (23:44)
[2021-05-28] MEDS ORDERED: ACETAMINOPHEN 1000 MG/100 ML BAG IVPB ONE (00:02)
[2021-05-28] MEDS ORDERED: HEPARIN NA (PORCINE) 5,000 UNITS/ML 1ML VIAL SQ SCH (06:00)
[2021-05-28] MEDS: INSULIN (LEVEMIR) 100 UNITS/ML UNITS SQ SCH ×2 (07:11→21:59)
[2021-05-28 07:49] LABS: BASO % 0.7 % (0-2.0); HEMOGLOBIN 11.7 GM/dL (10.7-15.3); LYMPH % 18.9 % (8-40); MCH 29.6 pg (25.7-33.7); MCHC 33.5 g/dl (32.0-36.0); MEAN CELL VOLUME 88.2 fl (80-96); MEAN PLT VOLUME 9.1 fl (7.5-11.1); MONO % 9.6 % (3.8-10.2); NEUT % 69.8 % (42.8-82.8); PLATELET COUNT 209 10^3/uL (134-434); RBC 3.97 M/mm3 (3.60-5.2); RDW 15.7 % (11.6-15.6); WHITE BLOOD COUNT 5.6 K/mm3 (4.0-10.0)
[2021-05-28 08:17] LABS: BLOOD UREA NITROGEN 42.1 mg/dL (7-18); CALCIUM 9.1 mg/dL (8.5-10.1); MAGNESIUM 2.6 mg/dL (1.8-2.4)
[2021-05-28 08:20] LABS: PHOSPHOROUS 3.7 mg/dL (2.5-4.9)
[2021-05-28] MEDS: GABAPENTIN 300 MG CAPSULE PO SCH ×2 (09:51→21:59)
[2021-05-28] MEDS: APIXABAN 5 MG TABLET PO SCH ×2 (09:51→21:59)
[2021-05-28] MEDS ORDERED: ASPIRIN 81 MG CHEWABLE TABLETS PO SCH (10:00)
[2021-05-28] MEDS: amLODIPine BESYLATE 10 MG TABLET (FP) PO SCH (10:11)
[2021-05-28 10:15] LABS: HIV INTERPRETATION NEGATIVE (NEGATIVE)
[2021-05-28 13:40] VITALS: BMI 32.7
[2021-05-28] MEDS: SODIUM CHLORIDE 1,000 ML IV SCH (19:30)
[2021-05-28] MEDS: ATORVASTATIN CA 10 MG TABLET (FP) PO SCH (21:59)
[2021-05-28] MEDS: BACITRACIN 15 GM TUBE TOPICAL OINTMENT TP SCH (21:59)
[2021-05-29] MEDS ORDERED: ACETAMINOPHEN 325 MG TABLET (FP) PO PRN (00:31)
[2021-05-29] MEDS: ACETAMINOPHEN 325 MG TABLET (FP) PO PRN ×2 (01:15→22:19)
[2021-05-29 01:51] LABS: EPI CELLS 3 /uL (0-25.1); HYALINE CASTS 1 /uL (0-3.1); URINE APPEARANCE CLEAR; URINE BACTERIA 10 /uL (0-1359); URINE BILIRUBIN NEGATIVE (NEGATIVE); URINE COLOR YELLOW; URINE GLUCOSE (UA) 1+ (NEGATIVE); URINE KETONE NEGATIVE (NEGATIVE); URINE LEUK ESTERASE 1+ (NEGATIVE); URINE NITRITE NEGATIVE (NEGATIVE); URINE PROTEIN NEGATIVE (NEGATIVE); URINE RBC 44 /uL (0-23.9); URINE UROBILINOGEN 0.2 mg/dL (0.2-1.0); URINE WBC 40 /uL (0-25.8)
[2021-05-29 08:23] LABS: CALCIUM 9.1 mg/dL (8.5-10.1)
[2021-05-29 08:24] LABS: ALBUMIN 3.8 g/dl (3.4-5.0); BLOOD UREA NITROGEN 35.5 mg/dL (7-18)
[2021-05-29 08:27] LABS: CREATININE 2.1 mg/dL (0.55-1.3)
[2021-05-29 08:28] LABS: TOT PROT 7.1 g/dl (6.4-8.2)
[2021-05-29 08:29] LABS: BILIRUBIN,TOTAL 0.4 mg/dL (0.2-1)
[2021-05-29] MEDS: INSULIN (LEVEMIR) 100 UNITS/ML UNITS SQ SCH ×2 (10:16→22:18)
[2021-05-29] MEDS: amLODIPine BESYLATE 10 MG TABLET (FP) PO SCH (10:17)
[2021-05-29] MEDS: APIXABAN 5 MG TABLET PO SCH ×2 (10:17→22:17)
[2021-05-29] MEDS: GABAPENTIN 300 MG CAPSULE PO SCH ×2 (10:17→22:19)
[2021-05-29] MEDS: BACITRACIN 15 GM TUBE TOPICAL OINTMENT TP SCH ×2 (10:18→22:25)
[2021-05-29] MEDS ORDERED: SODIUM CHLORIDE 0.45% 1,000 ML IV SCH (12:30)
[2021-05-29] MEDS: ATORVASTATIN CA 10 MG TABLET (FP) PO SCH (22:19)
[2021-05-30] MEDS: INSULIN (LEVEMIR) 100 UNITS/ML UNITS SQ SCH (06:15)
[2021-05-30 08:18] LABS: ALBUMIN 3.4 g/dl (3.4-5.0); BLOOD UREA NITROGEN 25.9 mg/dL (7-18); MAGNESIUM 1.9 mg/dL (1.8-2.4)
[2021-05-30 08:20] LABS: BILIRUBIN,TOTAL 0.5 mg/dL (0.2-1); TOT PROT 7.2 g/dl (6.4-8.2)
[2021-05-30 08:21] LABS: CREATININE 1.6 mg/dL (0.55-1.3)
[2021-05-30 09:02] LABS: BASO % 0.7 % (0-2.0); EOS % 0.9 % (0-4.5); HEMATOCRIT 37.4 % (32.4-45.2); HEMOGLOBIN 12.2 GM/dL (10.7-15.3); LYMPH % 22.1 % (8-40); MCH 28.7 pg (25.7-33.7); MCHC 32.6 g/dl (32.0-36.0); MEAN PLT VOLUME 9.5 fl (7.5-11.1); MONO % 9.7 % (3.8-10.2); NEUT % 66.6 % (42.8-82.8); PLATELET COUNT 218 10^3/uL (134-434); RBC 4.24 M/mm3 (3.60-5.2); RDW 15.4 % (11.6-15.6); WHITE BLOOD COUNT 4.8 K/mm3 (4.0-10.0)
[2021-05-30] MEDS: APIXABAN 5 MG TABLET PO SCH (10:17)
[2021-05-30] MEDS: amLODIPine BESYLATE 10 MG TABLET (FP) PO SCH (10:17)
[2021-05-30] MEDS: ACETAMINOPHEN 325 MG TABLET (FP) PO PRN (10:17)
[2021-05-30] MEDS: BACITRACIN 15 GM TUBE TOPICAL OINTMENT TP SCH (10:18)
[2021-05-30] MEDS: GABAPENTIN 300 MG CAPSULE PO SCH (10:18)
[2021-05-30 10:54] VITALS: BP 149/73; PULSE 62; TEMP 98.9
== END 2021-05-30 16:29 | disposition home or self-care (01) | DRG 683 ==
LOC: JER 11:48 → JERBED 14:46 → J4W 20:07
PROVIDERS: ADMIT Internal Medicine; ATTEND Nurse Practitioner Family
DX: N17.9 Acute kidney failure, unspecified (principal); I24.8 Other forms of acute ischemic heart disease; E78.5 Hyperlipidemia, unspecified; I45.10 Unspecified right bundle-branch block; I25.10 Atherosclerotic heart disease of native coronary artery without angina pectoris; Z79.01 Long term (current) use of anticoagulants; E11.22 Type 2 diabetes mellitus with diabetic chronic kidney disease; I12.9 Hypertensive chronic kidney disease with stage 1 through stage 4 chronic kidney disease, or unspecified chronic kidney disease; N18.9 Chronic kidney disease, unspecified; E66.9 Obesity, unspecified; Z68.32 Body mass index [BMI] 32.0-32.9, adult; R77.8 Other specified abnormalities of plasma proteins; I48.0 Paroxysmal atrial fibrillation; M62.830 Muscle spasm of back
CPT/HCPCS: 36415; 71045-TC-FY; 76775-TC; 76856-TC; 80048; 80053; 80061; 81003; 82436; 82570; 82962; 83036; 83735; 84100; 84133; 84156; 84300; 84443; 84484; 85025; 86162; 86705; 86803; 87086; 87389; 87517; 93005; 93010; 99285-25; C9803-CS; U0003; U0005

== ENCOUNTER 2021-09-30 11:38 | Inpatient (IN) | payer OTHER ==
[2021-09-30] MEDS ORDERED: MEROPENEM 1 GM in DEXTROSE 5%-WATER 100 ML IVPB ONE (13:03)
[2021-09-30 13:18] LABS: BASO % 1.5 % (0-2.0); EOS % 0.2 % (0-4.5); HEMATOCRIT 36.6 % (32.4-45.2); HEMOGLOBIN 11.8 GM/dL (10.7-15.3); MCH 29.1 pg (25.7-33.7); MCHC 32.4 g/dl (32.0-36.0); MEAN CELL VOLUME 89.9 fl (80-96); MEAN PLT VOLUME 9.1 fl (7.5-11.1); MONO % 11.5 % (3.8-10.2); NEUT % 73.8 % (42.8-82.8); PLATELET COUNT 243 10^3/uL (134-434); RBC 4.07 M/mm3 (3.60-5.2); RDW 13.6 % (11.6-15.6)
[2021-09-30 13:27] LABS: INR 1.58 (0.83-1.09); PROTHROMBIN TIME (PATIENT) 18.3 SEC (9.7-13.0)
[2021-09-30] MEDS ORDERED: MEROPENEM 1 GM VIAL (RESTRICTED TO ID) IVPB ONE (13:29)
[2021-09-30 13:37] LABS: CALCIUM 9.4 mg/dL (8.5-10.1)
[2021-09-30 13:38] LABS: ALBUMIN 3.6 g/dl (3.4-5.0); BLOOD UREA NITROGEN 12.8 mg/dL (7-18)
[2021-09-30 13:41] LABS: CREATININE 1.1 mg/dL (0.55-1.3)
[2021-09-30 13:42] LABS: BILIRUBIN,TOTAL 0.3 mg/dL (0.2-1); TOT PROT 7.6 g/dl (6.4-8.2)
[2021-09-30] MEDS ORDERED: POTASSIUM CHLORIDE TABS 20 MEQ TABLET.ER (FP) PO ONE (14:28)
[2021-09-30 15:00] LABS: ERYTHROCYTE SEDIMENTATION RATE 5 mm/hr (0-30)
[2021-09-30] MEDS ORDERED: VANCOMYCIN/WATER 1,250 MG/250 ML BAG IVPB SCH (16:00)
[2021-09-30] MEDS ORDERED: VANCOMYCIN/WATER 1250 MG 1,250 MG/250 ML BAG IVPB ONE (16:29)
[2021-09-30] MEDS: VANCOMYCIN/WATER 1,250 MG/250 ML BAG IVPB SCH (16:47)
[2021-09-30] MEDS ORDERED: DEXTROSE 50%-WATER 25 GM/50 ML DISP.SYRIN IVPUSH PRN (19:25)
[2021-09-30] MEDS ORDERED: PATIENT'S OWN MEDICATION (NON-FORMULARY) (Simvastatin [Zocor] 20 MG Tablet) PO SCH ×2 (22:00)
[2021-09-30] MEDS ORDERED: HYDROXYCHLOROQUINE SO4 200 MG TABLET (FP) PO SCH (22:00)
[2021-09-30] MEDS: APIXABAN 5 MG TABLET PO SCH (23:12)
[2021-09-30] MEDS: INSULIN (LEVEMIR) 100 UNITS/ML UNITS SQ SCH (23:13)
[2021-09-30] MEDS: ATORVASTATIN CA 10 MG TABLET (FP) PO SCH (23:14)
[2021-09-30] MEDS: GABAPENTIN 300 MG CAPSULE PO SCH (23:14)
[2021-09-30] MEDS: INSULIN SLIDING SCALE (NOVOLOG) 1 VIAL SQ SCH (23:16)
[2021-09-30] MEDS: MEROPENEM 1 GM in DEXTROSE 5%-WATER 100 ML IVPB SCH (23:20)
[2021-09-30] MEDS: HYDROXYCHLOROQUINE SO4 200 MG TABLET (FP) PO SCH (23:36)
[2021-10-01] MEDS: VANCOMYCIN/WATER 1,250 MG/250 ML BAG IVPB SCH (04:31)
[2021-10-01 05:12] VITALS: BMI 31.8
[2021-10-01] MEDS: GABAPENTIN 300 MG CAPSULE PO SCH ×3 (06:20→21:24)
[2021-10-01] MEDS: MEROPENEM 1 GM in DEXTROSE 5%-WATER 100 ML IVPB SCH (06:21)
[2021-10-01] MEDS: INSULIN (LEVEMIR) 100 UNITS/ML UNITS SQ SCH ×2 (07:09→21:24)
[2021-10-01] MEDS: INSULIN SLIDING SCALE (NOVOLOG) 1 VIAL SQ SCH ×4 (07:10→21:24)
[2021-10-01 09:00] LABS: BASO % 0.5 % (0-2.0); EOS % 0.7 % (0-4.5); HEMATOCRIT 35.2 % (32.4-45.2); HEMOGLOBIN 11.7 GM/dL (10.7-15.3); LYMPH % 21.3 % (8-40); MCH 29.4 pg (25.7-33.7); MCHC 33.2 g/dl (32.0-36.0); MEAN CELL VOLUME 88.7 fl (80-96); MEAN PLT VOLUME 8.7 fl (7.5-11.1); MONO % 10.3 % (3.8-10.2); NEUT % 67.2 % (42.8-82.8); PLATELET COUNT 260 10^3/uL (134-434); RBC 3.97 M/mm3 (3.60-5.2); RDW 13.4 % (11.6-15.6); WHITE BLOOD COUNT 6.4 K/mm3 (4.0-10.0)
[2021-10-01 09:30] LABS: BLOOD UREA NITROGEN 12.7 mg/dL (7-18)
[2021-10-01 09:31] LABS: ALBUMIN 3.1 g/dl (3.4-5.0); MAGNESIUM 1.9 mg/dL (1.8-2.4)
[2021-10-01 09:33] LABS: PHOSPHOROUS 3.3 mg/dL (2.5-4.9)
[2021-10-01 09:35] LABS: BILIRUBIN,TOTAL 0.3 mg/dL (0.2-1)
[2021-10-01] MEDS ORDERED: ENOXAPARIN NA (PORCINE) 40 MG/0.4 ML DISP.SYRIN SQ SCH (10:00)
[2021-10-01] MEDS: APIXABAN 5 MG TABLET PO SCH (10:43)
[2021-10-01] MEDS: amLODIPine BESYLATE 10 MG TABLET (FP) PO SCH (10:43)
[2021-10-01] MEDS: PANTOPRAZOLE 40 MG TABLET PO SCH (10:43)
[2021-10-01] MEDS: HYDROXYCHLOROQUINE SO4 200 MG TABLET (FP) PO SCH ×2 (10:44→21:30)
[2021-10-01] MEDS ORDERED: VANCOMYCIN/WATER 1,250 MG/250 ML BAG IVPB SCH (16:00)
[2021-10-01] MEDS: COLLAGENASE CLOSTRIDIUM HIST. 30 GRAMS TUBE TP SCH (16:44)
[2021-10-01] MEDS ORDERED: INSULIN (LEVEMIR) 100 UNITS/ML UNITS SQ ONE (21:22)
[2021-10-01] MEDS: ATORVASTATIN CA 10 MG TABLET (FP) PO SCH (21:24)
[2021-10-01] MEDS ORDERED: MEROPENEM 1 GM in DEXTROSE 5%-WATER 100 ML IVPB SCH (22:00)
[2021-10-02 01:34] LABS: PH,URINE 6.5 (5.0-8.0); URINE APPEARANCE CLEAR; URINE BILIRUBIN NEGATIVE (NEGATIVE); URINE COLOR YELLOW; URINE GLUCOSE (UA) NEGATIVE (NEGATIVE); URINE KETONE NEGATIVE (NEGATIVE); URINE LEUK ESTERASE NEGATIVE (NEGATIVE); URINE NITRITE NEGATIVE (NEGATIVE); URINE PROTEIN NEGATIVE (NEGATIVE); URINE UROBILINOGEN 0.2 mg/dL (0.2-1.0)
[2021-10-02] MEDS: GABAPENTIN 300 MG CAPSULE PO SCH ×3 (05:52→22:14)
[2021-10-02] MEDS: INSULIN SLIDING SCALE (NOVOLOG) 1 VIAL SQ SCH ×4 (07:23→22:14)
[2021-10-02] MEDS: INSULIN (LEVEMIR) 100 UNITS/ML UNITS SQ SCH ×2 (07:29→22:15)
[2021-10-02 08:36] LABS: BASO % 0.5 % (0-2.0); EOS % 1.3 % (0-4.5); HEMATOCRIT 35.5 % (32.4-45.2); HEMOGLOBIN 11.7 GM/dL (10.7-15.3); LYMPH % 22.3 % (8-40); MCH 29.2 pg (25.7-33.7); MCHC 32.9 g/dl (32.0-36.0); MEAN CELL VOLUME 88.7 fl (80-96); MEAN PLT VOLUME 9.4 fl (7.5-11.1); MONO % 9.8 % (3.8-10.2); NEUT % 66.1 % (42.8-82.8); PLATELET COUNT 271 10^3/uL (134-434); RDW 13.3 % (11.6-15.6); WHITE BLOOD COUNT 5.3 K/mm3 (4.0-10.0)
[2021-10-02 09:01] LABS: CALCIUM 9.1 mg/dL (8.5-10.1)
[2021-10-02 09:02] LABS: BLOOD UREA NITROGEN 12.4 mg/dL (7-18)
[2021-10-02 09:05] LABS: CREATININE 0.9 mg/dL (0.55-1.3)
[2021-10-02] MEDS ORDERED: LISINOPRIL 5 MG TABLET PO SCH (10:00)
[2021-10-02] MEDS: HYDROXYCHLOROQUINE SO4 200 MG TABLET (FP) PO SCH ×2 (11:46→22:14)
[2021-10-02] MEDS: amLODIPine BESYLATE 10 MG TABLET (FP) PO SCH (11:46)
[2021-10-02] MEDS: PANTOPRAZOLE 40 MG TABLET PO SCH (11:46)
[2021-10-02] MEDS: COLLAGENASE CLOSTRIDIUM HIST. 30 GRAMS TUBE TP SCH (11:46)
[2021-10-02] MEDS ORDERED: LISINOPRIL 5 MG TABLET PO ONE (16:48)
[2021-10-02] MEDS ORDERED: INSULIN (NOVOLOG) ASPART 100 UNITS/ML 10ML VIAL ONE (22:04)
[2021-10-02] MEDS: ATORVASTATIN CA 10 MG TABLET (FP) PO SCH (22:14)
[2021-10-03] MEDS: GABAPENTIN 300 MG CAPSULE PO SCH ×3 (06:36→22:50)
[2021-10-03] MEDS: INSULIN SLIDING SCALE (NOVOLOG) 1 VIAL SQ SCH ×4 (06:36→22:17)
[2021-10-03] MEDS: INSULIN (LEVEMIR) 100 UNITS/ML UNITS SQ SCH ×3 (06:36→23:45)
[2021-10-03 09:11] LABS: BASO % 0.6 % (0-2.0); HEMATOCRIT 35.2 % (32.4-45.2); HEMOGLOBIN 11.8 GM/dL (10.7-15.3); LYMPH % 21.6 % (8-40); MCH 29.6 pg (25.7-33.7); MCHC 33.4 g/dl (32.0-36.0); MEAN CELL VOLUME 88.5 fl (80-96); MEAN PLT VOLUME 9.1 fl (7.5-11.1); MONO % 10.5 % (3.8-10.2); NEUT % 66.3 % (42.8-82.8); PLATELET COUNT 280 10^3/uL (134-434); RBC 3.98 M/mm3 (3.60-5.2); RDW 13.5 % (11.6-15.6); WHITE BLOOD COUNT 5.6 K/mm3 (4.0-10.0)
[2021-10-03 09:34] LABS: BLOOD UREA NITROGEN 12.9 mg/dL (7-18); CALCIUM 9.2 mg/dL (8.5-10.1)
[2021-10-03 09:35] LABS: ALBUMIN 3.1 g/dl (3.4-5.0)
[2021-10-03 09:40] LABS: TOT PROT 6.8 g/dl (6.4-8.2)
[2021-10-03 09:47] LABS: BILIRUBIN,TOTAL 0.3 mg/dL (0.2-1)
[2021-10-03] MEDS ORDERED: LISINOPRIL 10 MG TABLET PO SCH (10:00)
[2021-10-03] MEDS: amLODIPine BESYLATE 10 MG TABLET (FP) PO SCH (11:04)
[2021-10-03] MEDS: HYDROXYCHLOROQUINE SO4 200 MG TABLET (FP) PO SCH ×2 (11:05→22:50)
[2021-10-03] MEDS: PANTOPRAZOLE 40 MG TABLET PO SCH (11:05)
[2021-10-03] MEDS: COLLAGENASE CLOSTRIDIUM HIST. 30 GRAMS TUBE TP SCH (13:55)
[2021-10-03] MEDS: ATORVASTATIN CA 10 MG TABLET (FP) PO SCH (22:50)
[2021-10-04] MEDS: GABAPENTIN 300 MG CAPSULE PO SCH ×3 (06:02→22:21)
[2021-10-04] MEDS: INSULIN SLIDING SCALE (NOVOLOG) 1 VIAL SQ SCH ×4 (06:13→22:21)
[2021-10-04] MEDS: INSULIN (LEVEMIR) 100 UNITS/ML UNITS SQ SCH ×2 (08:04→22:20)
[2021-10-04] MEDS ORDERED: PATIENT'S OWN MEDICATION (NON-FORMULARY) (Lisinopril [Zestril] 30 MG Tablet) PO SCH (10:00)
[2021-10-04 10:05] LABS: BASO % 0.6 % (0-2.0); EOS % 0.5 % (0-4.5); HEMATOCRIT 35.4 % (32.4-45.2); HEMOGLOBIN 11.6 GM/dL (10.7-15.3); LYMPH % 15.6 % (8-40); MCHC 32.8 g/dl (32.0-36.0); MEAN CELL VOLUME 88.6 fl (80-96); MEAN PLT VOLUME 9.1 fl (7.5-11.1); MONO % 8.8 % (3.8-10.2); NEUT % 74.5 % (42.8-82.8); PLATELET COUNT 276 10^3/uL (134-434); RBC 3.99 M/mm3 (3.60-5.2); RDW 13.4 % (11.6-15.6); WHITE BLOOD COUNT 6.2 K/mm3 (4.0-10.0)
[2021-10-04 10:32] LABS: BLOOD UREA NITROGEN 16.6 mg/dL (7-18); CALCIUM 9.2 mg/dL (8.5-10.1)
[2021-10-04] MEDS: LISINOPRIL 10 MG TABLET PO SCH (11:06)
[2021-10-04] MEDS: HYDROXYCHLOROQUINE SO4 200 MG TABLET (FP) PO SCH (11:07)
[2021-10-04] MEDS: amLODIPine BESYLATE 10 MG TABLET (FP) PO SCH (11:07)
[2021-10-04] MEDS: PANTOPRAZOLE 40 MG TABLET PO SCH (11:07)
[2021-10-04] MEDS: COLLAGENASE CLOSTRIDIUM HIST. 30 GRAMS TUBE TP SCH (11:08)
[2021-10-04] MEDS ORDERED: HEPARIN NA (PORCINE) 5,000 UNITS/ML 1ML VIAL IVPUSH PRN ×2 (14:57)
[2021-10-04] MEDS: HEPARIN - 25,000 UNIT in SODIUM CHLORIDE 495 ML IV SCH (18:43)
[2021-10-04] MEDS: ATORVASTATIN CA 10 MG TABLET (FP) PO SCH (22:22)
[2021-10-05 02:46] LABS: HEMATOCRIT 36.8 % (32.4-45.2); HEMOGLOBIN 12.1 GM/dL (10.7-15.3); MCH 29.1 pg (25.7-33.7); MCHC 32.9 g/dl (32.0-36.0); MEAN CELL VOLUME 88.5 fl (80-96); MEAN PLT VOLUME 9.1 fl (7.5-11.1); PLATELET COUNT 291 10^3/uL (134-434); RBC 4.15 M/mm3 (3.60-5.2); RDW 13.1 % (11.6-15.6); WHITE BLOOD COUNT 6.1 K/mm3 (4.0-10.0)
[2021-10-05] MEDS: GABAPENTIN 300 MG CAPSULE PO SCH ×3 (06:08→22:55)
[2021-10-05] MEDS: INSULIN (LEVEMIR) 100 UNITS/ML UNITS SQ SCH ×2 (06:09→23:00)
[2021-10-05] MEDS: INSULIN SLIDING SCALE (NOVOLOG) 1 VIAL SQ SCH ×4 (06:10→22:59)
[2021-10-05 09:00] LABS: BASO % 0.5 % (0-2.0); EOS % 0.9 % (0-4.5); HEMATOCRIT 36.1 % (32.4-45.2); HEMOGLOBIN 11.9 GM/dL (10.7-15.3); MCH 29.2 pg (25.7-33.7); MEAN CELL VOLUME 88.5 fl (80-96); MEAN PLT VOLUME 9.3 fl (7.5-11.1); MONO % 7.9 % (3.8-10.2); NEUT % 69.7 % (42.8-82.8); PLATELET COUNT 295 10^3/uL (134-434); RBC 4.08 M/mm3 (3.60-5.2); RDW 13.2 % (11.6-15.6); WHITE BLOOD COUNT 5.9 K/mm3 (4.0-10.0)
[2021-10-05 09:33] LABS: ALBUMIN 3.3 g/dl (3.4-5.0); BLOOD UREA NITROGEN 15.5 mg/dL (7-18); CALCIUM 9.4 mg/dL (8.5-10.1)
[2021-10-05 09:36] LABS: CREATININE 1.1 mg/dL (0.55-1.3)
[2021-10-05 09:37] LABS: BILIRUBIN,TOTAL 0.2 mg/dL (0.2-1); TOT PROT 7.3 g/dl (6.4-8.2)
[2021-10-05] MEDS: LIDOCAINE 5% TOPICAL PATCH TP SCH ×2 (10:39→10:50)
[2021-10-05] MEDS: amLODIPine BESYLATE 10 MG TABLET (FP) PO SCH (10:40)
[2021-10-05] MEDS: PANTOPRAZOLE 40 MG TABLET PO SCH (10:40)
[2021-10-05] MEDS: LISINOPRIL 10 MG TABLET PO SCH (10:40)
[2021-10-05] MEDS: COLLAGENASE CLOSTRIDIUM HIST. 30 GRAMS TUBE TP SCH (14:43)
[2021-10-05 16:13] LABS: HEMATOCRIT 36.4 % (32.4-45.2); HEMOGLOBIN 11.9 GM/dL (10.7-15.3); MCHC 32.8 g/dl (32.0-36.0); MEAN CELL VOLUME 88.6 fl (80-96); MEAN PLT VOLUME 9.3 fl (7.5-11.1); PLATELET COUNT 308 10^3/uL (134-434); RBC 4.11 M/mm3 (3.60-5.2); RDW 13.3 % (11.6-15.6); WHITE BLOOD COUNT 7.1 K/mm3 (4.0-10.0)
[2021-10-05] MEDS: HEPARIN - 25,000 UNIT in SODIUM CHLORIDE 495 ML IV SCH (17:57)
[2021-10-05 20:13] LABS: HEMATOCRIT 34.3 % (32.4-45.2); HEMOGLOBIN 11.6 GM/dL (10.7-15.3); MCHC 33.7 g/dl (32.0-36.0); MEAN CELL VOLUME 88.9 fl (80-96); MEAN PLT VOLUME 8.5 fl (7.5-11.1); PLATELET COUNT 304 10^3/uL (134-434); RBC 3.86 M/mm3 (3.60-5.2); RDW 13.1 % (11.6-15.6); WHITE BLOOD COUNT 7.5 K/mm3 (4.0-10.0)
[2021-10-05] MEDS ORDERED: LIDOCAINE PATCH REMOVAL MC SCH (22:00)
[2021-10-05] MEDS: ATORVASTATIN CA 10 MG TABLET (FP) PO SCH (22:55)
[2021-10-06] MEDS: INSULIN SLIDING SCALE (NOVOLOG) 1 VIAL SQ SCH ×4 (06:53→21:28)
[2021-10-06] MEDS: INSULIN (LEVEMIR) 100 UNITS/ML UNITS SQ SCH ×2 (06:53→21:27)
[2021-10-06] MEDS: GABAPENTIN 300 MG CAPSULE PO SCH ×3 (06:53→21:29)
[2021-10-06 08:25] LABS: BASO % 0.8 % (0-2.0); EOS % 1.1 % (0-4.5); HEMATOCRIT 34.6 % (32.4-45.2); HEMOGLOBIN 11.6 GM/dL (10.7-15.3); LYMPH % 19.8 % (8-40); MCH 29.2 pg (25.7-33.7); MCHC 33.4 g/dl (32.0-36.0); MEAN CELL VOLUME 87.3 fl (80-96); MEAN PLT VOLUME 8.9 fl (7.5-11.1); MONO % 7.8 % (3.8-10.2); NEUT % 70.5 % (42.8-82.8); PLATELET COUNT 310 10^3/uL (134-434); RBC 3.97 M/mm3 (3.60-5.2); WHITE BLOOD COUNT 6.5 K/mm3 (4.0-10.0)
[2021-10-06 08:52] LABS: ALBUMIN 3.2 g/dl (3.4-5.0)
[2021-10-06 08:55] LABS: BILIRUBIN,TOTAL 0.3 mg/dL (0.2-1)
[2021-10-06] MEDS ORDERED: LIDOCAINE HCL 1%, 10 MG/ML (20ML VIAL) ONE (09:40)
[2021-10-06] MEDS ORDERED: HEPARIN NA (PORCINE) 5,000 UNITS/ML 1ML VIAL ONE ×3 (09:40→11:31)
[2021-10-06] MEDS: LIDOCAINE 5% TOPICAL PATCH TP SCH (09:52)
[2021-10-06] MEDS: PANTOPRAZOLE 40 MG TABLET PO SCH (09:54)
[2021-10-06] MEDS: COLLAGENASE CLOSTRIDIUM HIST. 30 GRAMS TUBE TP SCH (09:55)
[2021-10-06] MEDS: LISINOPRIL 10 MG TABLET PO SCH (10:00)
[2021-10-06] MEDS: amLODIPine BESYLATE 10 MG TABLET (FP) PO SCH (10:00)
[2021-10-06] MEDS ORDERED: PROPOFOL 20 ML ONE (10:55)
[2021-10-06] MEDS ORDERED: ONDANSETRON 4 MG/2 ML VIAL IVPUSH PRN ×2 (11:06→13:02)
[2021-10-06] MEDS ORDERED: oxyCODONE HCL 5 MG TABLET PO PRN (11:06)
[2021-10-06] MEDS ORDERED: ceFAZolin SODIUM 1 GM VIAL ONE (11:12)
[2021-10-06] MEDS ORDERED: ceFAZolin SODIUM 1 GM VIAL IVPB ONE (11:13)
[2021-10-06] MEDS ORDERED: LACTATED RINGERS SOLUTION 1,000 ML IV SCH (11:15)
[2021-10-06] MEDS ORDERED: LIDOCAINE HCL 1%, 10 MG/ML (20ML VIAL) INF ONE ×2 (11:18)
[2021-10-06] MEDS ORDERED: LIDOCAINE HCL 2% (20ML MULTI-DOSE VIAL) ONE (11:48)
[2021-10-06] MEDS ORDERED: LIDOCAINE HCL 2% (50ML VIAL) INF ONE (11:55)
[2021-10-06] MEDS ORDERED: DEXTROSE 50%-WATER 25 GM/50 ML DISP.SYRIN IVPUSH PRN (13:02)
[2021-10-06] MEDS: LACTATED RINGERS SOLUTION 1,000 ML IV SCH (13:30)
[2021-10-06] MEDS: oxyCODONE HCL 5 MG TABLET PO PRN (18:26)
[2021-10-06] MEDS: ATORVASTATIN CA 10 MG TABLET (FP) PO SCH (21:30)
[2021-10-06] MEDS: LIDOCAINE PATCH REMOVAL MC SCH (21:33)
[2021-10-07] MEDS: GABAPENTIN 300 MG CAPSULE PO SCH ×3 (06:40→21:58)
[2021-10-07] MEDS: INSULIN (LEVEMIR) 100 UNITS/ML UNITS SQ SCH ×2 (06:41→21:59)
[2021-10-07] MEDS: INSULIN SLIDING SCALE (NOVOLOG) 1 VIAL SQ SCH ×4 (06:41→21:58)
[2021-10-07 08:10] LABS: BASO % 0.7 % (0-2.0); EOS % 1.1 % (0-4.5); HEMATOCRIT 36.2 % (32.4-45.2); LYMPH % 15.1 % (8-40); MCH 29.1 pg (25.7-33.7); MCHC 33.2 g/dl (32.0-36.0); MEAN CELL VOLUME 87.6 fl (80-96); MEAN PLT VOLUME 8.7 fl (7.5-11.1); MONO % 9.9 % (3.8-10.2); NEUT % 73.2 % (42.8-82.8); PLATELET COUNT 304 10^3/uL (134-434); RBC 4.12 M/mm3 (3.60-5.2); RDW 13.3 % (11.6-15.6); WHITE BLOOD COUNT 7.9 K/mm3 (4.0-10.0)
[2021-10-07 08:35] LABS: CALCIUM 9.3 mg/dL (8.5-10.1)
[2021-10-07 08:36] LABS: ALBUMIN 3.4 g/dl (3.4-5.0); BLOOD UREA NITROGEN 15.6 mg/dL (7-18)
[2021-10-07 08:39] LABS: CREATININE 1.2 mg/dL (0.55-1.3)
[2021-10-07 08:40] LABS: BILIRUBIN,TOTAL 0.8 mg/dL (0.2-1); TOT PROT 7.6 g/dl (6.4-8.2)
[2021-10-07] MEDS: oxyCODONE HCL 5 MG TABLET PO PRN (10:32)
[2021-10-07] MEDS: LIDOCAINE 5% TOPICAL PATCH TP SCH (10:32)
[2021-10-07] MEDS: LISINOPRIL 10 MG TABLET PO SCH (10:33)
[2021-10-07] MEDS: amLODIPine BESYLATE 10 MG TABLET (FP) PO SCH (10:33)
[2021-10-07] MEDS: PANTOPRAZOLE 40 MG TABLET PO SCH (10:33)
[2021-10-07] MEDS ORDERED: INSULIN (NOVOLOG) ASPART 100 UNITS/ML 10ML VIAL ONE (12:12)
[2021-10-07] MEDS: COLLAGENASE CLOSTRIDIUM HIST. 30 GRAMS TUBE TP SCH (12:34)
[2021-10-07] MEDS: LACTATED RINGERS SOLUTION 1,000 ML IV SCH (15:15)
[2021-10-07] MEDS: APIXABAN 5 MG TABLET PO SCH ×2 (17:54→21:58)
[2021-10-07] MEDS: PIPERACILLIN/TAZOB 3.375 GM 3.375 GM in DEXTROSE 5%-WATER - 50 ML IVPB SCH (18:05)
[2021-10-07] MEDS: ATORVASTATIN CA 10 MG TABLET (FP) PO SCH (21:58)
[2021-10-07] MEDS: LIDOCAINE PATCH REMOVAL MC SCH (21:59)
[2021-10-08] MEDS: PIPERACILLIN/TAZOB 3.375 GM 3.375 GM in DEXTROSE 5%-WATER - 50 ML IVPB SCH ×3 (02:34→17:16)
[2021-10-08] MEDS: INSULIN SLIDING SCALE (NOVOLOG) 1 VIAL SQ SCH ×4 (06:32→21:55)
[2021-10-08] MEDS: GABAPENTIN 300 MG CAPSULE PO SCH ×3 (06:32→21:47)
[2021-10-08] MEDS: INSULIN (LEVEMIR) 100 UNITS/ML UNITS SQ SCH ×2 (06:33→21:53)
[2021-10-08 08:49] LABS: BASO % 0.7 % (0-2.0); EOS % 1.3 % (0-4.5); HEMATOCRIT 35.5 % (32.4-45.2); HEMOGLOBIN 11.8 GM/dL (10.7-15.3); LYMPH % 17.1 % (8-40); MCH 29.3 pg (25.7-33.7); MCHC 33.2 g/dl (32.0-36.0); MEAN CELL VOLUME 88.3 fl (80-96); MEAN PLT VOLUME 9.2 fl (7.5-11.1); MONO % 9.5 % (3.8-10.2); NEUT % 71.4 % (42.8-82.8); PLATELET COUNT 312 10^3/uL (134-434); RBC 4.02 M/mm3 (3.60-5.2); RDW 13.6 % (11.6-15.6); WHITE BLOOD COUNT 8.2 K/mm3 (4.0-10.0)
[2021-10-08 09:18] LABS: ALBUMIN 3.3 g/dl (3.4-5.0); CALCIUM 9.4 mg/dL (8.5-10.1)
[2021-10-08 09:19] LABS: BLOOD UREA NITROGEN 15.2 mg/dL (7-18)
[2021-10-08 09:21] LABS: CREATININE 1.2 mg/dL (0.55-1.3)
[2021-10-08 09:23] LABS: BILIRUBIN,TOTAL 0.4 mg/dL (0.2-1); TOT PROT 7.3 g/dl (6.4-8.2)
[2021-10-08] MEDS: LIDOCAINE 5% TOPICAL PATCH TP SCH (10:12)
[2021-10-08] MEDS: LISINOPRIL 10 MG TABLET PO SCH (10:14)
[2021-10-08] MEDS: PANTOPRAZOLE 40 MG TABLET PO SCH (10:14)
[2021-10-08] MEDS: APIXABAN 5 MG TABLET PO SCH ×2 (10:14→21:47)
[2021-10-08] MEDS: amLODIPine BESYLATE 10 MG TABLET (FP) PO SCH (10:15)
[2021-10-08] MEDS: COLLAGENASE CLOSTRIDIUM HIST. 30 GRAMS TUBE TP SCH (11:10)
[2021-10-08] MEDS: ATORVASTATIN CA 10 MG TABLET (FP) PO SCH (21:47)
[2021-10-08] MEDS: LIDOCAINE PATCH REMOVAL MC SCH (21:47)
[2021-10-09] MEDS: PIPERACILLIN/TAZOB 3.375 GM 3.375 GM in DEXTROSE 5%-WATER - 50 ML IVPB SCH ×3 (01:34→18:03)
[2021-10-09] MEDS: GABAPENTIN 300 MG CAPSULE PO SCH ×3 (06:14→21:41)
[2021-10-09] MEDS: INSULIN SLIDING SCALE (NOVOLOG) 1 VIAL SQ SCH ×4 (06:21→21:40)
[2021-10-09] MEDS: INSULIN (LEVEMIR) 100 UNITS/ML UNITS SQ SCH ×2 (06:22→21:40)
[2021-10-09 09:13] LABS: BASO % 0.9 % (0-2.0); EOS % 1.5 % (0-4.5); HEMATOCRIT 35.2 % (32.4-45.2); HEMOGLOBIN 11.7 GM/dL (10.7-15.3); LYMPH % 15.7 % (8-40); MCH 29.2 pg (25.7-33.7); MCHC 33.2 g/dl (32.0-36.0); MEAN CELL VOLUME 87.8 fl (80-96); MEAN PLT VOLUME 8.5 fl (7.5-11.1); MONO % 8.6 % (3.8-10.2); NEUT % 73.3 % (42.8-82.8); PLATELET COUNT 308 10^3/uL (134-434); RBC 4.01 M/mm3 (3.60-5.2); RDW 13.4 % (11.6-15.6); WHITE BLOOD COUNT 6.8 K/mm3 (4.0-10.0)
[2021-10-09 09:33] LABS: CALCIUM 8.9 mg/dL (8.5-10.1)
[2021-10-09 09:34] LABS: BLOOD UREA NITROGEN 16.8 mg/dL (7-18)
[2021-10-09 09:37] LABS: CREATININE 1.2 mg/dL (0.55-1.3)
[2021-10-09 09:39] LABS: BILIRUBIN,TOTAL 0.3 mg/dL (0.2-1); TOT PROT 7.1 g/dl (6.4-8.2)
[2021-10-09] MEDS: LISINOPRIL 10 MG TABLET PO SCH (10:15)
[2021-10-09] MEDS: PANTOPRAZOLE 40 MG TABLET PO SCH (10:15)
[2021-10-09] MEDS: LIDOCAINE 5% TOPICAL PATCH TP SCH (10:15)
[2021-10-09] MEDS: amLODIPine BESYLATE 10 MG TABLET (FP) PO SCH (10:15)
[2021-10-09] MEDS: APIXABAN 5 MG TABLET PO SCH ×2 (10:15→21:41)
[2021-10-09] MEDS: COLLAGENASE CLOSTRIDIUM HIST. 30 GRAMS TUBE TP SCH (10:16)
[2021-10-09] MEDS: ATORVASTATIN CA 10 MG TABLET (FP) PO SCH (21:41)
[2021-10-09] MEDS: LIDOCAINE PATCH REMOVAL MC SCH (21:44)
[2021-10-10] MEDS: PIPERACILLIN/TAZOB 3.375 GM 3.375 GM in DEXTROSE 5%-WATER - 50 ML IVPB SCH ×3 (02:20→17:47)
[2021-10-10] MEDS: GABAPENTIN 300 MG CAPSULE PO SCH ×3 (06:19→21:48)
[2021-10-10] MEDS: INSULIN (LEVEMIR) 100 UNITS/ML UNITS SQ SCH ×2 (06:20→21:48)
[2021-10-10] MEDS: INSULIN SLIDING SCALE (NOVOLOG) 1 VIAL SQ SCH ×5 (06:20→21:49)
[2021-10-10 08:08] LABS: BASO % 0.6 % (0-2.0); EOS % 1.5 % (0-4.5); HEMATOCRIT 33.8 % (32.4-45.2); HEMOGLOBIN 11.3 GM/dL (10.7-15.3); MCH 29.5 pg (25.7-33.7); MCHC 33.5 g/dl (32.0-36.0); MEAN CELL VOLUME 88.2 fl (80-96); MONO % 9.6 % (3.8-10.2); NEUT % 68.3 % (42.8-82.8); PLATELET COUNT 312 10^3/uL (134-434); RBC 3.83 M/mm3 (3.60-5.2); RDW 13.3 % (11.6-15.6); WHITE BLOOD COUNT 6.2 K/mm3 (4.0-10.0)
[2021-10-10 08:19] LABS: BLOOD UREA NITROGEN 14.4 mg/dL (7-18); CALCIUM 9.5 mg/dL (8.5-10.1)
[2021-10-10 08:22] LABS: CREATININE 1.2 mg/dL (0.55-1.3)
[2021-10-10 08:24] LABS: BILIRUBIN,TOTAL 0.4 mg/dL (0.2-1); TOT PROT 7.1 g/dl (6.4-8.2)
[2021-10-10] MEDS: APIXABAN 5 MG TABLET PO SCH ×2 (10:42→21:48)
[2021-10-10] MEDS: LISINOPRIL 10 MG TABLET PO SCH (10:43)
[2021-10-10] MEDS: amLODIPine BESYLATE 10 MG TABLET (FP) PO SCH (10:43)
[2021-10-10] MEDS: LIDOCAINE 5% TOPICAL PATCH TP SCH (10:43)
[2021-10-10] MEDS: PANTOPRAZOLE 40 MG TABLET PO SCH (10:43)
[2021-10-10] MEDS: COLLAGENASE CLOSTRIDIUM HIST. 30 GRAMS TUBE TP SCH (10:45)
[2021-10-10] MEDS ORDERED: INSULIN (LEVEMIR) 100 UNITS/ML UNITS SQ ONE (10:48)
[2021-10-10] MEDS ORDERED: ACETAMINOPHEN 325 MG TABLET (FP) PO PRN (10:53)
[2021-10-10] MEDS: ATORVASTATIN CA 10 MG TABLET (FP) PO SCH (21:48)
[2021-10-10] MEDS: LIDOCAINE PATCH REMOVAL MC SCH (21:48)
[2021-10-11] MEDS: PIPERACILLIN/TAZOB 3.375 GM 3.375 GM in DEXTROSE 5%-WATER - 50 ML IVPB SCH ×2 (01:27→09:31)
[2021-10-11] MEDS: GABAPENTIN 300 MG CAPSULE PO SCH ×2 (06:44→14:34)
[2021-10-11] MEDS: INSULIN SLIDING SCALE (NOVOLOG) 1 VIAL SQ SCH ×2 (06:45→11:33)
[2021-10-11] MEDS: INSULIN (LEVEMIR) 100 UNITS/ML UNITS SQ SCH (06:45)
[2021-10-11 07:33] VITALS: BP 156/69; PULSE 60; RESP 18; TEMP 98.4
[2021-10-11] MEDS: LIDOCAINE 5% TOPICAL PATCH TP SCH (09:31)
[2021-10-11] MEDS: APIXABAN 5 MG TABLET PO SCH (09:32)
[2021-10-11] MEDS: amLODIPine BESYLATE 10 MG TABLET (FP) PO SCH (09:32)
[2021-10-11] MEDS: LISINOPRIL 10 MG TABLET PO SCH (09:32)
[2021-10-11] MEDS: PANTOPRAZOLE 40 MG TABLET PO SCH (09:32)
[2021-10-11] MEDS: COLLAGENASE CLOSTRIDIUM HIST. 30 GRAMS TUBE TP SCH (09:36)
== END 2021-10-11 15:27 | disposition home or self-care (01) | DRG 623 ==
LOC: JER 11:38 → JERBED 14:08 → J8W 20:11 → J7W 10-03 20:52
PROVIDERS: ADMIT Internal Medicine; ATTEND Internal Medicine
PROC: B41DZZZ Fluoroscopy of Aorta and Bilateral Lower Extremity Arteries (ICD-10-PCS; 2021-10-06)
PROC: 0JBR0ZZ Excision of Left Foot Subcutaneous Tissue and Fascia, Open Approach (ICD-10-PCS; principal; 2021-10-06 11:18)
PROC: 0QBR0ZX Excision of Left Toe Phalanx, Open Approach, Diagnostic (ICD-10-PCS; 2021-10-06 11:18)
PROC: 02HV33Z Insertion of Infusion Device into Superior Vena Cava, Percutaneous Approach (ICD-10-PCS; 2021-10-11)
PROC: B548ZZA Ultrasonography of Superior Vena Cava, Guidance (ICD-10-PCS; 2021-10-11)
DX: E11.69 Type 2 diabetes mellitus with other specified complication (principal); L03.116 Cellulitis of left lower limb; M86.172 Other acute osteomyelitis, left ankle and foot; L97.909 Non-pressure chronic ulcer of unspecified part of unspecified lower leg with unspecified severity; E11.621 Type 2 diabetes mellitus with foot ulcer; I48.91 Unspecified atrial fibrillation; I25.10 Atherosclerotic heart disease of native coronary artery without angina pectoris; N18.9 Chronic kidney disease, unspecified; I13.10 Hypertensive heart and chronic kidney disease without heart failure, with stage 1 through stage 4 chronic kidney disease, or unspecified chronic kidney disease; E11.51 Type 2 diabetes mellitus with diabetic peripheral angiopathy without gangrene; Z98.61 Coronary angioplasty status; E11.40 Type 2 diabetes mellitus with diabetic neuropathy, unspecified; E66.9 Obesity, unspecified; Z68.31 Body mass index [BMI] 31.0-31.9, adult; E78.5 Hyperlipidemia, unspecified
CPT/HCPCS: 0241U-QW; 11042; 36415; 36569; 71046-TC-FY; 73630-TC-LT; 73718-TC-LT; 76000-TC-FY; 77001-TC-FY; 80048; 80053; 81003; 82962; 83036; 83735; 84100; 85025; 85027; 85610; 85651; 85730; 86140; 86850; 86900; 86901; 87040; 87070; 87075; 87076; 87186; 87205; 88307-TC; 88311-TC; 93005; 93010; 94760; 99285-25; C1751; C9803-CS; J1644; U0003; U0005

== ENCOUNTER 2021-10-15 18:19 | Emergency (ER) | payer OTHER ==
[2021-10-15 18:38] VITALS: BP 165/73; PULSE 48; RESP 18; TEMP 98.1; BMI 33.5
[2021-10-15] MEDS ORDERED: PIPERACILLIN/TAZOB 3.375 GM 3.375 GM in DEXTROSE 5%-WATER - 50 ML IVPB ONE (19:39)
[2021-10-15] MEDS ORDERED: PIPERACILLIN/TAZOB 3.375 GM 3.375 GM/50 ML BAG IVPB ONE (20:00)
== END 2021-10-15 20:45 | disposition home or self-care (01) ==
LOC: JER 18:19
DX: M86.9 Osteomyelitis, unspecified (principal); Z45.2 Encounter for adjustment and management of vascular access device
CPT/HCPCS: 99281-25

== ENCOUNTER 2021-10-16 07:05 | Emergency (ER) | payer OTHER ==
[2021-10-16 07:21] VITALS: BP 173/86; PULSE 71; RESP 18; TEMP 98.5; BMI 32.5
[2021-10-16] MEDS ORDERED: PIPERACILLIN/TAZOB 3.375 GM 3.375 GM in DEXTROSE 5%-WATER - 50 ML IVPB ONE (07:35)
== END 2021-10-16 08:48 | disposition home or self-care (01) ==
LOC: JER 07:05
PROC: 3E033GC Introduction of Other Therapeutic Substance into Peripheral Vein, Percutaneous Approach (ICD-10-PCS; principal; 2021-10-16)
DX: M86.672 Other chronic osteomyelitis, left ankle and foot (principal)
CPT/HCPCS: 99284-25

== ENCOUNTER 2021-10-16 15:53 | Emergency (ER) | payer OTHER ==
[2021-10-16 16:01] VITALS: BP 168/72; PULSE 75; RESP 20; TEMP 98.1; BMI 32.5
[2021-10-16] MEDS ORDERED: PIPERACILLIN/TAZOB 3.375 GM 3.375 GM/50 ML BAG IVPB ONE (16:18)
[2021-10-16] MEDS ORDERED: PIPERACILLIN/TAZOB 3.375 GM 3.375 GM in DEXTROSE 5%-WATER - 50 ML IVPB ONE ×2 (16:30→23:59)
== END 2021-10-17 00:15 | disposition home or self-care (01) ==
LOC: JER 15:53
PROC: 3E033GC Introduction of Other Therapeutic Substance into Peripheral Vein, Percutaneous Approach (ICD-10-PCS; principal; 2021-10-16)
DX: M86.8X7 Other osteomyelitis, ankle and foot (principal)
CPT/HCPCS: 99284-25

== ENCOUNTER 2021-10-17 07:47 | Emergency (ER) | payer OTHER ==
[2021-10-17 07:53] VITALS: PULSE 75; RESP 18; TEMP 98.2; BMI 32.5
[2021-10-17] MEDS ORDERED: PIPERACILLIN/TAZOB 3.375 GM 3.375 GM in DEXTROSE 5%-WATER - 50 ML IVPB ONE (09:19)
[2021-10-17] MEDS ORDERED: PIPERACILLIN/TAZOB 3.375 GM 3.375 GM/50 ML BAG IVPB ONE (09:28)
[2021-10-17 10:43] VITALS: BP 170/70
== END 2021-10-17 12:59 | disposition home or self-care (01) ==
LOC: JER 07:47
DX: M86.9 Osteomyelitis, unspecified (principal)
CPT/HCPCS: 36569; 77001-TC-FY; 99284-25; C1751

== ENCOUNTER 2021-10-24 18:51 | Emergency (ER) | payer OTHER ==
[2021-10-24 18:57] VITALS: BP 178/85; PULSE 85; RESP 17; TEMP 98.2; BMI 32.5
[2021-10-24] MEDS ORDERED: PIPERACILLIN/TAZOB 3.375 GM 3.375 GM in DEXTROSE 5%-WATER - 50 ML IVPB ONE (22:15)
[2021-10-24] MEDS ORDERED: PIPERACILLIN/TAZOB 3.375 GM 3.375 GM/50 ML BAG IVPB ONE (22:17)
== END 2021-10-24 23:47 | disposition home or self-care (01) ==
LOC: JER 18:51
DX: Z45.2 Encounter for adjustment and management of vascular access device (principal)
CPT/HCPCS: 99291

== ENCOUNTER 2021-12-05 11:41 | Inpatient (IN) | payer OTHER ==
[2021-12-05 13:31] LABS: BASO % 0.8 % (0-2.0); EOS % 0.7 % (0-4.5); HEMATOCRIT 35.9 % (32.4-45.2); HEMOGLOBIN 11.7 GM/dL (10.7-15.3); LYMPH % 23.9 % (8-40); MCH 28.9 pg (25.7-33.7); MCHC 32.6 g/dl (32.0-36.0); MEAN CELL VOLUME 88.7 fl (80-96); MEAN PLT VOLUME 8.7 fl (7.5-11.1); MONO % 7.7 % (3.8-10.2); NEUT % 66.9 % (42.8-82.8); PLATELET COUNT 216 10^3/uL (134-434); RBC 4.05 M/mm3 (3.60-5.2); RDW 15.6 % (11.6-15.6); WHITE BLOOD COUNT 4.5 K/mm3 (4.0-10.0)
[2021-12-05 13:47] LABS: CALCIUM 9.1 mg/dL (8.5-10.1); CHLORIDE 111 mmol/L (98-107); SODIUM 144 mmol/L (136-145)
[2021-12-05 13:48] LABS: ALBUMIN 3.4 g/dl (3.4-5.0); ANION GAP 4 MMOL/L (8-16); BLOOD UREA NITROGEN 21.8 mg/dL (7-18); CO2 29 mmol/L (21-32); GLUCOSE,RANDOM 184 mg/dL (74-106)
[2021-12-05 13:51] LABS: CREATININE 1.3 mg/dL (0.55-1.3); SGOT/AST 23 U/L (15-37); SGPT/ALT 28 U/L (13-61)
[2021-12-05 13:52] LABS: BILIRUBIN,TOTAL 0.3 mg/dL (0.2-1)
[2021-12-05 13:53] LABS: TOT PROT 6.8 g/dl (6.4-8.2)
[2021-12-05 13:54] LABS: ALK PHOS 76 U/L (45-117)
[2021-12-05 14:20] LABS: ERYTHROCYTE SEDIMENTATION RATE 15 mm/hr (0-30)
[2021-12-05] MEDS ORDERED: VANCOMYCIN IVPB ONE ×2 (15:48→16:42)
[2021-12-05] MEDS ORDERED: WATER IVPB ONE ×2 (15:48→16:42)
[2021-12-05] MEDS ORDERED: DEXTROSE 5% IVPB ONE ×2 (15:48→16:42)
[2021-12-05] MEDS ORDERED: PIPERACILLIN/TAZOB 4.5 GM 4.5 GM in DEXTROSE 5%-WATER 100 ML IVPB ONE (15:48)
[2021-12-05] MEDS ORDERED: PIPERACILLIN/TAZOB 4.5 GM 4.5 GM/100 ML BAG IVPB ONE (16:14)
[2021-12-05] MEDS ORDERED: VANCOMYCIN/WATER 2 GM/400 ML PREMIX BAG IVPB ONE (16:45)
[2021-12-05 21:30] VITALS: BMI 32.8
[2021-12-06] MEDS ORDERED: APIXABAN 5 MG TABLET PO SCH (01:00)
[2021-12-06] MEDS: PIPERACILLIN/TAZOB 3.375 GM 3.375 GM in DEXTROSE 5%-WATER - 50 ML IVPB SCH ×3 (02:27→12:12)
[2021-12-06] MEDS: GABAPENTIN 300 MG CAPSULE PO SCH ×3 (06:05→21:45)
[2021-12-06] MEDS: INSULIN SLIDING SCALE (NOVOLOG) 1 VIAL SQ SCH ×5 (06:05→21:45)
[2021-12-06 09:57] LABS: BASO % 0.8 % (0-2.0); EOS % 1.1 % (0-4.5); HEMATOCRIT 36.3 % (32.4-45.2); HEMOGLOBIN 11.9 GM/dL (10.7-15.3); LYMPH % 18.4 % (8-40); MCH 29.1 pg (25.7-33.7); MCHC 32.7 g/dl (32.0-36.0); MEAN CELL VOLUME 88.9 fl (80-96); MEAN PLT VOLUME 9.1 fl (7.5-11.1); MONO % 7.5 % (3.8-10.2); NEUT % 72.2 % (42.8-82.8); PLATELET COUNT 214 10^3/uL (134-434); RBC 4.08 M/mm3 (3.60-5.2); RDW 16.1 % (11.6-15.6); WHITE BLOOD COUNT 4.3 K/mm3 (4.0-10.0)
[2021-12-06 10:38] LABS: ALBUMIN 3.5 g/dl (3.4-5.0); BLOOD UREA NITROGEN 12.7 mg/dL (7-18); CALCIUM 9.1 mg/dL (8.5-10.1)
[2021-12-06 10:42] LABS: PHOSPHOROUS 2.2 mg/dL (2.5-4.9)
[2021-12-06 10:43] LABS: BILIRUBIN,TOTAL 0.3 mg/dL (0.2-1); TOT PROT 6.9 g/dl (6.4-8.2)
[2021-12-06] MEDS: PANTOPRAZOLE 40 MG TABLET PO SCH (10:46)
[2021-12-06] MEDS: INSULIN (LEVEMIR) 100 UNITS/ML UNITS SQ SCH ×2 (10:46→21:46)
[2021-12-06] MEDS: LISINOPRIL 10 MG TABLET PO SCH (10:46)
[2021-12-06] MEDS: amLODIPine BESYLATE 10 MG TABLET (FP) PO SCH (10:46)
[2021-12-06] MEDS: FUROSEMIDE 40 MG TABLET (FP) PO SCH (10:46)
[2021-12-06] MEDS: HYDROXYCHLOROQUINE SO4 200 MG TABLET (FP) PO SCH ×2 (10:51→21:46)
[2021-12-06] MEDS: ATORVASTATIN CA 10 MG TABLET (FP) PO SCH (21:45)
[2021-12-07] MEDS: INSULIN SLIDING SCALE (NOVOLOG) 1 VIAL SQ SCH ×4 (06:46→21:37)
[2021-12-07] MEDS: GABAPENTIN 300 MG CAPSULE PO SCH ×3 (06:54→21:38)
[2021-12-07 09:08] LABS: INR 1.03 (0.83-1.09); PROTHROMBIN TIME (PATIENT) 11.8 SEC (9.7-13.0)
[2021-12-07 09:09] LABS: BASO % 0.5 % (0-2.0); EOS % 1.9 % (0-4.5); HEMATOCRIT 37.4 % (32.4-45.2); HEMOGLOBIN 12.1 GM/dL (10.7-15.3); LYMPH % 28.9 % (8-40); MCH 28.9 pg (25.7-33.7); MCHC 32.4 g/dl (32.0-36.0); MEAN CELL VOLUME 89.1 fl (80-96); MEAN PLT VOLUME 8.8 fl (7.5-11.1); MONO % 8.3 % (3.8-10.2); NEUT % 60.4 % (42.8-82.8); PLATELET COUNT 223 10^3/uL (134-434); RDW 15.6 % (11.6-15.6); WHITE BLOOD COUNT 3.5 K/mm3 (4.0-10.0)
[2021-12-07 09:32] LABS: ALBUMIN 3.4 g/dl (3.4-5.0); BLOOD UREA NITROGEN 12.8 mg/dL (7-18); CALCIUM 9.4 mg/dL (8.5-10.1)
[2021-12-07 09:34] LABS: PHOSPHOROUS 2.6 mg/dL (2.5-4.9)
[2021-12-07 09:35] LABS: BILIRUBIN,TOTAL 0.3 mg/dL (0.2-1); CREATININE 0.9 mg/dL (0.55-1.3); TOT PROT 7.1 g/dl (6.4-8.2)
[2021-12-07] MEDS: LISINOPRIL 10 MG TABLET PO SCH (10:30)
[2021-12-07] MEDS: HYDROXYCHLOROQUINE SO4 200 MG TABLET (FP) PO SCH ×2 (10:30→21:38)
[2021-12-07] MEDS: amLODIPine BESYLATE 10 MG TABLET (FP) PO SCH (10:30)
[2021-12-07] MEDS: INSULIN (LEVEMIR) 100 UNITS/ML UNITS SQ SCH ×2 (10:30→21:37)
[2021-12-07] MEDS: FUROSEMIDE 40 MG TABLET (FP) PO SCH (10:30)
[2021-12-07] MEDS: PANTOPRAZOLE 40 MG TABLET PO SCH (10:30)
[2021-12-07] MEDS: ATORVASTATIN CA 10 MG TABLET (FP) PO SCH (21:38)
[2021-12-08] MEDS: GABAPENTIN 300 MG CAPSULE PO SCH ×3 (06:03→22:07)
[2021-12-08] MEDS: INSULIN SLIDING SCALE (NOVOLOG) 1 VIAL SQ SCH ×4 (06:03→22:06)
[2021-12-08] MEDS ORDERED: BUPIVACAINE HCL/PF 0.5% (5MG/ML) 10 ML VIAL ONE (07:11)
[2021-12-08] MEDS ORDERED: VANCOMYCIN 1,000 MG VIAL (RESTRICTED TO ID ONLY) ONE (07:11)
[2021-12-08] MEDS ORDERED: LIDOCAINE HCL 1%, 10 MG/ML (20ML VIAL) ONE (07:11)
[2021-12-08] MEDS ORDERED: LIDOCAINE HCL 1%, 10 MG/ML (20ML VIAL) ID ONE (07:50)
[2021-12-08] MEDS ORDERED: BUPIVACAINE HCL/PF 0.5% (5 MG/ML) 30 ML VIAL IJ ONE (07:50)
[2021-12-08] MEDS ORDERED: ONDANSETRON 4 MG/2 ML VIAL IVPUSH PRN (08:48)
[2021-12-08] MEDS ORDERED: LACTATED RINGERS SOLUTION 1,000 ML IV SCH (09:00)
[2021-12-08] MEDS: PANTOPRAZOLE 40 MG TABLET PO SCH (09:30)
[2021-12-08] MEDS: FUROSEMIDE 40 MG TABLET (FP) PO SCH (09:30)
[2021-12-08] MEDS: amLODIPine BESYLATE 10 MG TABLET (FP) PO SCH (09:30)
[2021-12-08] MEDS: LISINOPRIL 10 MG TABLET PO SCH (09:30)
[2021-12-08] MEDS: HYDROXYCHLOROQUINE SO4 200 MG TABLET (FP) PO SCH ×2 (09:35→22:07)
[2021-12-08] MEDS: INSULIN (LEVEMIR) 100 UNITS/ML UNITS SQ SCH ×2 (10:42→22:06)
[2021-12-08 13:07] LABS: BASO % 0.8 % (0-2.0); EOS % 0.8 % (0-4.5); HEMATOCRIT 39.2 % (32.4-45.2); HEMOGLOBIN 12.8 GM/dL (10.7-15.3); MCHC 32.7 g/dl (32.0-36.0); MEAN CELL VOLUME 88.7 fl (80-96); MEAN PLT VOLUME 8.8 fl (7.5-11.1); MONO % 8.2 % (3.8-10.2); NEUT % 67.2 % (42.8-82.8); PLATELET COUNT 234 10^3/uL (134-434); RBC 4.42 M/mm3 (3.60-5.2); RDW 15.8 % (11.6-15.6); WHITE BLOOD COUNT 5.9 K/mm3 (4.0-10.0)
[2021-12-08 13:14] LABS: INR 1.07 (0.83-1.09); PROTHROMBIN TIME (PATIENT) 12.3 SEC (9.7-13.0)
[2021-12-08 13:16] LABS: ACTIVATED PTT 32.1 SECONDS (25.2-36.5)
[2021-12-08 13:35] LABS: CALCIUM 9.6 mg/dL (8.5-10.1); MAGNESIUM 1.9 mg/dL (1.8-2.4)
[2021-12-08 13:37] LABS: ALBUMIN 3.5 g/dl (3.4-5.0)
[2021-12-08 13:38] LABS: CREATININE 1.1 mg/dL (0.55-1.3)
[2021-12-08 13:39] LABS: PHOSPHOROUS 3.3 mg/dL (2.5-4.9)
[2021-12-08 13:41] LABS: BILIRUBIN,TOTAL 0.4 mg/dL (0.2-1); TOT PROT 7.4 g/dl (6.4-8.2)
[2021-12-08] MEDS: CEFTRIAXONE 2 GM in DEXTROSE 5%-WATER 100 ML IVPB SCH (16:01)
[2021-12-08] MEDS: ATORVASTATIN CA 10 MG TABLET (FP) PO SCH (22:07)
[2021-12-09] MEDS: GABAPENTIN 300 MG CAPSULE PO SCH ×3 (05:57→21:53)
[2021-12-09] MEDS: INSULIN (LEVEMIR) 100 UNITS/ML UNITS SQ SCH ×2 (06:01→23:09)
[2021-12-09] MEDS: INSULIN SLIDING SCALE (NOVOLOG) 1 VIAL SQ SCH ×4 (06:04→21:53)
[2021-12-09 09:28] LABS: BASO % 0.8 % (0-2.0); EOS % 1.6 % (0-4.5); HEMATOCRIT 35.3 % (32.4-45.2); HEMOGLOBIN 11.9 GM/dL (10.7-15.3); LYMPH % 23.3 % (8-40); MCH 29.5 pg (25.7-33.7); MCHC 33.6 g/dl (32.0-36.0); MEAN PLT VOLUME 8.7 fl (7.5-11.1); NEUT % 66.3 % (42.8-82.8); PLATELET COUNT 198 10^3/uL (134-434); RBC 4.02 M/mm3 (3.60-5.2); RDW 15.5 % (11.6-15.6); WHITE BLOOD COUNT 4.4 K/mm3 (4.0-10.0)
[2021-12-09 09:42] LABS: BLOOD UREA NITROGEN 19.4 mg/dL (7-18); MAGNESIUM 1.7 mg/dL (1.8-2.4)
[2021-12-09 09:46] LABS: CREATININE 1.1 mg/dL (0.55-1.3); PHOSPHOROUS 3.7 mg/dL (2.5-4.9)
[2021-12-09] MEDS ORDERED: MAGNESIUM SULF 50% (8.12 MEQ/2 ML-1 GM VIAL) IVPB ONE (09:46)
[2021-12-09 09:51] LABS: N-TERMINAL BNP 342.2 pg/ml (5-125)
[2021-12-09] MEDS: HYDROXYCHLOROQUINE SO4 200 MG TABLET (FP) PO SCH ×2 (10:26→21:58)
[2021-12-09] MEDS: CEFTRIAXONE 2 GM in DEXTROSE 5%-WATER 100 ML IVPB SCH (10:26)
[2021-12-09] MEDS: amLODIPine BESYLATE 10 MG TABLET (FP) PO SCH (10:26)
[2021-12-09] MEDS: FUROSEMIDE 40 MG TABLET (FP) PO SCH (10:26)
[2021-12-09] MEDS: APIXABAN 5 MG TABLET PO SCH ×2 (10:26→21:53)
[2021-12-09] MEDS: PANTOPRAZOLE 40 MG TABLET PO SCH (10:26)
[2021-12-09] MEDS: LISINOPRIL 10 MG TABLET PO SCH (10:26)
[2021-12-09] MEDS: ACETAMINOPHEN 1000 MG/100 ML BAG IVPB PRN ×2 (11:49→21:54)
[2021-12-09] MEDS: ATORVASTATIN CA 10 MG TABLET (FP) PO SCH (21:58)
[2021-12-10] MEDS: GABAPENTIN 300 MG CAPSULE PO SCH ×3 (06:16→22:49)
[2021-12-10] MEDS: INSULIN (LEVEMIR) 100 UNITS/ML UNITS SQ SCH ×2 (06:17→22:48)
[2021-12-10] MEDS: INSULIN SLIDING SCALE (NOVOLOG) 1 VIAL SQ SCH ×4 (06:21→22:48)
[2021-12-10] MEDS: HYDROXYCHLOROQUINE SO4 200 MG TABLET (FP) PO SCH ×2 (10:23→22:48)
[2021-12-10] MEDS: FUROSEMIDE 40 MG TABLET (FP) PO SCH (10:23)
[2021-12-10] MEDS: LISINOPRIL 10 MG TABLET PO SCH (10:23)
[2021-12-10] MEDS: PANTOPRAZOLE 40 MG TABLET PO SCH (10:23)
[2021-12-10] MEDS: CEFTRIAXONE 2 GM in DEXTROSE 5%-WATER 100 ML IVPB SCH (10:23)
[2021-12-10] MEDS: APIXABAN 5 MG TABLET PO SCH ×2 (10:24→22:49)
[2021-12-10] MEDS: amLODIPine BESYLATE 10 MG TABLET (FP) PO SCH (10:24)
[2021-12-10 10:36] LABS: BASO % 1.1 % (0-2.0); HEMATOCRIT 36.2 % (32.4-45.2); HEMOGLOBIN 11.6 GM/dL (10.7-15.3); LYMPH % 23.4 % (8-40); MCH 28.4 pg (25.7-33.7); MCHC 32.2 g/dl (32.0-36.0); MEAN CELL VOLUME 88.3 fl (80-96); MEAN PLT VOLUME 9.5 fl (7.5-11.1); MONO % 8.4 % (3.8-10.2); NEUT % 64.1 % (42.8-82.8); PLATELET COUNT 231 10^3/uL (134-434); RDW 15.5 % (11.6-15.6); WHITE BLOOD COUNT 4.6 K/mm3 (4.0-10.0)
[2021-12-10 10:56] LABS: ALBUMIN 3.4 g/dl (3.4-5.0)
[2021-12-10 10:57] LABS: CALCIUM 9.1 mg/dL (8.5-10.1)
[2021-12-10 10:58] LABS: BLOOD UREA NITROGEN 15.4 mg/dL (7-18); CREATININE 1.1 mg/dL (0.55-1.3)
[2021-12-10 11:00] LABS: BILIRUBIN,TOTAL 0.5 mg/dL (0.2-1); PHOSPHOROUS 3.2 mg/dL (2.5-4.9)
[2021-12-10] MEDS: ATORVASTATIN CA 10 MG TABLET (FP) PO SCH (22:49)
[2021-12-10] MEDS: ACETAMINOPHEN 325 MG TABLET (FP) PO PRN (23:32)
[2021-12-11] MEDS: INSULIN SLIDING SCALE (NOVOLOG) 1 VIAL SQ SCH ×4 (06:23→22:25)
[2021-12-11] MEDS: GABAPENTIN 300 MG CAPSULE PO SCH ×3 (06:23→22:22)
[2021-12-11] MEDS: INSULIN (LEVEMIR) 100 UNITS/ML UNITS SQ SCH ×2 (06:23→22:23)
[2021-12-11] MEDS: CEFTRIAXONE 2 GM in DEXTROSE 5%-WATER 100 ML IVPB SCH (10:22)
[2021-12-11] MEDS: PANTOPRAZOLE 40 MG TABLET PO SCH (10:23)
[2021-12-11] MEDS: APIXABAN 5 MG TABLET PO SCH ×2 (10:23→22:22)
[2021-12-11] MEDS: FUROSEMIDE 40 MG TABLET (FP) PO SCH (10:23)
[2021-12-11] MEDS: LISINOPRIL 10 MG TABLET PO SCH (10:23)
[2021-12-11] MEDS: amLODIPine BESYLATE 10 MG TABLET (FP) PO SCH (10:23)
[2021-12-11] MEDS: HYDROXYCHLOROQUINE SO4 200 MG TABLET (FP) PO SCH ×2 (10:23→22:22)
[2021-12-11] MEDS: ATORVASTATIN CA 10 MG TABLET (FP) PO SCH (22:22)
[2021-12-12] MEDS: GABAPENTIN 300 MG CAPSULE PO SCH ×3 (06:21→21:25)
[2021-12-12] MEDS: INSULIN (LEVEMIR) 100 UNITS/ML UNITS SQ SCH ×2 (06:21→21:37)
[2021-12-12] MEDS: INSULIN SLIDING SCALE (NOVOLOG) 1 VIAL SQ SCH ×4 (06:22→21:38)
[2021-12-12 09:10] LABS: EOS % 1.4 % (0-4.5); HEMOGLOBIN 11.9 GM/dL (10.7-15.3); LYMPH % 23.9 % (8-40); MCH 28.5 pg (25.7-33.7); MCHC 32.1 g/dl (32.0-36.0); MEAN CELL VOLUME 88.8 fl (80-96); MEAN PLT VOLUME 9.1 fl (7.5-11.1); MONO % 8.9 % (3.8-10.2); NEUT % 64.8 % (42.8-82.8); PLATELET COUNT 225 10^3/uL (134-434); RBC 4.17 M/mm3 (3.60-5.2); RDW 15.4 % (11.6-15.6)
[2021-12-12 09:32] LABS: CALCIUM 9.6 mg/dL (8.5-10.1)
[2021-12-12 09:33] LABS: BLOOD UREA NITROGEN 14.8 mg/dL (7-18)
[2021-12-12 09:36] LABS: CREATININE 1.1 mg/dL (0.55-1.3)
[2021-12-12] MEDS: LISINOPRIL 10 MG TABLET PO SCH (11:57)
[2021-12-12] MEDS: amLODIPine BESYLATE 10 MG TABLET (FP) PO SCH (11:58)
[2021-12-12] MEDS: PANTOPRAZOLE 40 MG TABLET PO SCH (11:58)
[2021-12-12] MEDS: APIXABAN 5 MG TABLET PO SCH ×2 (11:59→21:24)
[2021-12-12] MEDS: HYDROXYCHLOROQUINE SO4 200 MG TABLET (FP) PO SCH ×2 (11:59→21:46)
[2021-12-12] MEDS: CEFTRIAXONE 2 GM in DEXTROSE 5%-WATER 100 ML IVPB SCH (11:59)
[2021-12-12] MEDS: FUROSEMIDE 40 MG TABLET (FP) PO SCH (12:01)
[2021-12-12 14:10] VITALS: RESP 18
[2021-12-12] MEDS: ATORVASTATIN CA 10 MG TABLET (FP) PO SCH (21:24)
[2021-12-13] MEDS: GABAPENTIN 300 MG CAPSULE PO SCH ×2 (06:14→14:42)
[2021-12-13] MEDS: INSULIN SLIDING SCALE (NOVOLOG) 1 VIAL SQ SCH ×2 (06:20→14:12)
[2021-12-13] MEDS: INSULIN (LEVEMIR) 100 UNITS/ML UNITS SQ SCH (06:20)
[2021-12-13 09:30] LABS: BASO % 0.8 % (0-2.0); EOS % 2.3 % (0-4.5); HEMATOCRIT 36.9 % (32.4-45.2); HEMOGLOBIN 12.4 GM/dL (10.7-15.3); LYMPH % 23.1 % (8-40); MCH 29.4 pg (25.7-33.7); MCHC 33.6 g/dl (32.0-36.0); MEAN CELL VOLUME 87.4 fl (80-96); MEAN PLT VOLUME 9.4 fl (7.5-11.1); MONO % 7.7 % (3.8-10.2); NEUT % 66.1 % (42.8-82.8); PLATELET COUNT 213 10^3/uL (134-434); RBC 4.22 M/mm3 (3.60-5.2); RDW 15.3 % (11.6-15.6); WHITE BLOOD COUNT 4.5 K/mm3 (4.0-10.0)
[2021-12-13 09:56] LABS: CALCIUM 9.2 mg/dL (8.5-10.1)
[2021-12-13 09:57] LABS: ALBUMIN 3.5 g/dl (3.4-5.0); BLOOD UREA NITROGEN 16.1 mg/dL (7-18); MAGNESIUM 1.5 mg/dL (1.8-2.4)
[2021-12-13 10:00] LABS: CREATININE 1.1 mg/dL (0.55-1.3)
[2021-12-13 10:01] LABS: BILIRUBIN,TOTAL 0.4 mg/dL (0.2-1); TOT PROT 7.2 g/dl (6.4-8.2)
[2021-12-13] MEDS: HYDROXYCHLOROQUINE SO4 200 MG TABLET (FP) PO SCH (10:28)
[2021-12-13] MEDS: APIXABAN 5 MG TABLET PO SCH (10:28)
[2021-12-13] MEDS: LISINOPRIL 10 MG TABLET PO SCH (10:28)
[2021-12-13] MEDS: FUROSEMIDE 40 MG TABLET (FP) PO SCH (10:28)
[2021-12-13] MEDS: amLODIPine BESYLATE 10 MG TABLET (FP) PO SCH (10:28)
[2021-12-13] MEDS: PANTOPRAZOLE 40 MG TABLET PO SCH (10:28)
[2021-12-13] MEDS: ACETAMINOPHEN 325 MG TABLET (FP) PO PRN (10:37)
[2021-12-13] MEDS ORDERED: MAGNESIUM SULF 50% (8.12 MEQ/2 ML-1 GM VIAL) IVPB ONE (12:59)
[2021-12-13] MEDS ORDERED: POTASSIUM CHLORIDE TABS 20 MEQ TABLET.ER (FP) PO ONE ×2 (12:59→15:12)
[2021-12-13] MEDS ORDERED: INSULIN (NOVOLOG) ASPART 100 UNITS/ML 10ML VIAL ONE (14:09)
[2021-12-13] MEDS: CEFTRIAXONE 2 GM in DEXTROSE 5%-WATER 100 ML IVPB SCH (14:20)
[2021-12-13 14:51] VITALS: BP 167/69; PULSE 73; TEMP 98.9
== END 2021-12-13 17:00 | disposition home or self-care (01) | DRG 988 ==
LOC: JER 11:41 → JERBED 15:52 → J7W 20:30
PROVIDERS: ADMIT Internal Medicine; ATTEND Internal Medicine
PROC: 0Q9 Lower Bones, Drainage (ICD-10-PCS; principal; 2021-12-08 07:30)
PROC: 02HV33Z Insertion of Infusion Device into Superior Vena Cava, Percutaneous Approach (ICD-10-PCS; 2021-12-13)
DX: E11.69 Type 2 diabetes mellitus with other specified complication (principal); M86.172 Other acute osteomyelitis, left ankle and foot; M86.8X7 Other osteomyelitis, ankle and foot; M86.9 Osteomyelitis, unspecified; R78.81 Bacteremia; L08.9 Local infection of the skin and subcutaneous tissue, unspecified; I10 Essential (primary) hypertension; Z95.5 Presence of coronary angioplasty implant and graft; I25.10 Atherosclerotic heart disease of native coronary artery without angina pectoris; E11.40 Type 2 diabetes mellitus with diabetic neuropathy, unspecified; E78.5 Hyperlipidemia, unspecified; K21.9 Gastro-esophageal reflux disease without esophagitis; L93.0 Discoid lupus erythematosus; N18.9 Chronic kidney disease, unspecified; I12.9 Hypertensive chronic kidney disease with stage 1 through stage 4 chronic kidney disease, or unspecified chronic kidney disease; M89.9 Disorder of bone, unspecified; M06.9 Rheumatoid arthritis, unspecified; E11.22 Type 2 diabetes mellitus with diabetic chronic kidney disease; I48.91 Unspecified atrial fibrillation
CPT/HCPCS: 36415; 36569; 71046-TC-FY; 73630-TC-LT; 77001-TC-FY; 80048; 80053; 80061; 82962; 83036; 83735; 83880; 84100; 84443; 85025; 85610; 85651; 85730; 86140; 87040; 87070; 87075; 87205; 93005; 93010; 94760; 97116-GP; 97161-GP; 99285-25; C1751; C9803-CS; G0277; U0003; U0005

== ENCOUNTER 2022-09-19 05:05 | Day surgery (SDC) | payer OTHER ==
[2022-09-13 13:14] VITALS: BMI 32.9
[2022-09-19] MEDS ORDERED: TRIAMCINOLONE ACET 40MG/1ML VIAL ONE (07:27)
[2022-09-19] MEDS ORDERED: BUPIVACAINE HCL/PF 0.5% (5MG/ML) 10 ML VIAL ONE (07:28)
[2022-09-19] MEDS ORDERED: LIDOCAINE HCL/PF 1% SDV 5ML VIAL ONE (07:28)
[2022-09-19] MEDS ORDERED: ACETAMINOPHEN 500 MG TABLET (FP) PO PRN (07:45)
[2022-09-19 13:39] VITALS: RESP 16; TEMP 97.3
[2022-09-19] MEDS ORDERED: LIDOCAINE HCL 1% PRESERVATIVE FREE - 30ML VIAL IJ ONE (14:38)
[2022-09-19] MEDS ORDERED: IOHEXOL 180 MG/1 ML ML IJ ONE (14:38)
[2022-09-19] MEDS ORDERED: TRIAMCINOLONE ACET 40MG/1ML VIAL IJ ONE (14:40)
[2022-09-19] MEDS ORDERED: BUPIVACAINE HCL/PF 0.5% (5MG/ML) 10 ML VIAL IJ ONE (14:40)
[2022-09-19 15:05] VITALS: BP 135/67; PULSE 59
== END 2022-09-19 15:35 | disposition home or self-care (01) ==
LOC: JASU-SURG 05:05
PROVIDERS: ATTEND Pain Medicine Pain Medicine
PROC: 3E0U3BZ Introduction of Anesthetic Agent into Joints, Percutaneous Approach (ICD-10-PCS; 2022-09-19)
PROC: 3E0U33Z Introduction of Anti-inflammatory into Joints, Percutaneous Approach (ICD-10-PCS; principal; 2022-09-19 15:00)
DX: M53.3 Sacrococcygeal disorders, not elsewhere classified (principal)
CPT/HCPCS: 76000-TC-FY

== ENCOUNTER 2022-10-24 04:12 | Day surgery (SDC) | payer OTHER ==
[2022-10-23 10:53] VITALS: BMI 32.5
[~2022-10-24 04:12] MED LIST: LIDOCAINE HCL 1% PRESERVATIVE FREE - 30ML VIAL IJ ONE
[2022-10-24] MEDS ORDERED: LIDOCAINE HCL 1% PRESERVATIVE FREE - 30ML VIAL IJ ONE (11:07)
[2022-10-24 14:40] VITALS: BP 108/56; PULSE 68; RESP 20; TEMP 97
[2022-10-24] MEDS ORDERED: ACETAMINOPHEN 500 MG TABLET (FP) PO PRN (14:51)
== END 2022-10-24 12:40 | disposition home or self-care (01) ==
LOC: JASU-SURG 04:12
PROVIDERS: ATTEND Pain Medicine Pain Medicine
PROC: 01HY3MZ Insertion of Neurostimulator Lead into Peripheral Nerve, Percutaneous Approach (ICD-10-PCS; principal; 2022-10-24 11:45)
DX: G89.4 Chronic pain syndrome (principal); G54.6 Phantom limb syndrome with pain
CPT/HCPCS: 64555; C1778

== ENCOUNTER 2022-11-24 04:12 | Day surgery (SDC) | payer OTHER ==
[2022-11-23 10:20] VITALS: BMI 32.5
[~2022-11-24 04:12] MED LIST changes: +LIDOCAINE 1% P/F 10 MG/ML VIAL INF ONE; -LIDOCAINE HCL 1% PRESERVATIVE FREE - 30ML VIAL IJ ONE
[2022-11-24] MEDS ORDERED: ACETAMINOPHEN 500 MG TABLET (FP) PO PRN (09:12)
[2022-11-24 10:57] VITALS: RESP 18
[2022-11-24] MEDS ORDERED: LIDOCAINE 1% P/F 10 MG/ML VIAL INF ONE ×2 (13:10→13:16)
[2022-11-24 14:27] VITALS: BP 148/70; PULSE 78; TEMP 97.4
== END 2022-11-24 14:28 | disposition home or self-care (01) ==
LOC: JASU-SURG 04:12
PROVIDERS: ATTEND Pain Medicine Pain Medicine
PROC: 01HY3MZ Insertion of Neurostimulator Lead into Peripheral Nerve, Percutaneous Approach (ICD-10-PCS; principal; 2022-11-24 11:45)
DX: G89.4 Chronic pain syndrome (principal)
CPT/HCPCS: 64555; C1778

== ENCOUNTER 2022-12-19 04:59 | Day surgery (SDC) | payer OTHER ==
[2022-12-13 11:34] VITALS: BMI 32.5
[2022-12-19] MEDS ORDERED: LIDOCAINE HCL/PF 1% SDV 5ML VIAL ONE (07:31)
[2022-12-19 11:29] VITALS: PULSE 73; RESP 20; TEMP 97.8
[2022-12-19] MEDS ORDERED: LIDOCAINE HCL 1% PRESERVATIVE FREE - 30ML VIAL IJ ONE ×2 (12:39)
[2022-12-19 15:28] VITALS: BP 152/78
[2022-12-19] MEDS ORDERED: ACETAMINOPHEN 500 MG TABLET (FP) PO PRN (15:32)
== END 2022-12-19 13:45 | disposition home or self-care (01) ==
LOC: JASU-SURG 04:59
PROVIDERS: ATTEND Pain Medicine Pain Medicine
PROC: 01HY3MZ Insertion of Neurostimulator Lead into Peripheral Nerve, Percutaneous Approach (ICD-10-PCS; principal; 2022-12-19 12:45)
DX: G89.4 Chronic pain syndrome (principal)
CPT/HCPCS: 64555; C1778; 76000-TC-FY